=== PATIENT | male | born 1995 | race Asian ===

== ENCOUNTER 2020-11-17 10:45 | Outpatient (RCR) | payer MEDICAID, SELFPAY ==
[2020-11-03 13:09] VITALS: BP 103/69; PULSE 69; TEMP 37.1; BMI 16.2
--- NOTE | 2020-11-03 16:45 | PCM.WC.HP ---
(1) Pressure injury of sacral region, stage 4 Status: Acute Code(s): L89.154 - Pressure ulcer of sacral region, stage 4 (2) Pressure injury of left buttock, stage 4 Status: Acute Code(s): L89.324 - Pressure ulcer of left buttock, stage 4 (3) Malnutrition Status: Acute Code(s): E46 - Unspecified protein-calorie malnutrition (4) Muscular dystrophy Status: Acute Code(s): G71.00 - Muscular dystrophy, unspecified (5) Tracheostomy in place Status: Acute Code(s): Z93.0 - Tracheostomy status (6) Chronic respiratory failure Status: Chronic Code(s): J96.10 - Chronic respiratory failure, unspecified whether with hypoxia or hypercapnia (7) Colostomy in place Status: Acute Code(s): Z93.3 - Colostomy status History of Present Illness Date of Service: 11/03/20 Chief Complaint: stage four pressure injuries to sacrum and buttock History of Wound: This is a 25-year-old male who presents to the wound healing center today with stage IV pressure injuries to his sacrum and left buttock. He has with his father today. The patient is wheelchair-bound/bedbound and has a tracheostomy in place and has a history of severe muscular dystrophy, debility, and prior myocutaneous flap repair to sacral pressure ulcer. Patient is not verbal during today's office visit and from information gathered from the father the wounds have been present for greater than 6 months now. The patient underwent surgery in March 2020 to have his myocutaneous flap to close the sacral pressure ulcer. Afterwards per report of father he was hospitalized for pneumonia and developed another pressure injury to his left buttock. He was last seen by wound care in June 2020 and was placed on a wound VAC. The patient did not follow-up with wound care afterwards but did have home care nursing coming out 3 times a week. The father states that the wound VAC was discontinued a couple weeks ago. Since then they have been using an alginate dressing packed and changed daily. Denies any systemic or local signs of infection at this time. Denies any other acute concerns. Past medical, family, and social history reviewed and not pertinent to the current visit and all other systems reviewed and negative with exception of those listed above. Past Medical History Past Medical History: Chronic Problems Chronic respiratory failure (Chronic) Allergies/Adverse Reactions: Allergies No Known Allergies Allergy (Verified 11/03/20 13:34) Home Medications: Ambulatory Orders Medication Instructions Recorded Famotidine [Pepcid] 20 mg PO DAILY 11/03/20 Metoprolol Tartrate 25 mg PO 11/03/20 Metoprolol Tartrate [Lopressor] 25 mg PO 11/03/20 Smoking Status: Never smoker Review of Systems Constitutional: Denies: Chills, Fever, Weight Change Eyes: Denies: Pain, Vision Change HEENT: Denies: Difficulty Hearing, Difficulty Swallowing, Sinus Congestion Cardiovascular: Denies: Chest Pain, Palpitations Respiratory: Denies: Cough, Shortness of Breath Gastrointestinal: Denies: Diarrhea, Nausea, Vomiting Genitourinary: Denies: Dysuria, Hematuria Skin: Reports: Wounds - See HPI Endocrine: Denies: Heat/ Cold Intolerance, Polydipsia, Polyuria Hematologic/ Lymphatic: Denies: Easy Bruising, Easy Bleeding - Physical Exam Vital Signs Temp Pulse BP 98.7 F 69 103/69 11/03/20 13:09 11/03/20 13:09 11/03/20 13:09 General: Alert, - - Severely malnourished HEENT: Atraumatic Oral: Moist Mucosa Neck: - - Tracheostomy in place Lungs: Clear to auscultation Cardiovascular: Regular rate, Regular Rhythm Abdomen: Soft, Non Tender Extremities: - - Muscular atrophy all extremities Skin: Ulcer/ Wound - Stage IV pressure injuries to sacrum and left buttock with bone exposed, moderate amount of slough present, some circumferential undermining present to left buttock pressure injury, no signs of obvious infection at this time Wound Measurements and Assessment WC - Nurse 1 - General Ulcer Measurement Start: 11/03/20 13:00 Freq: Status: Active Protocol: Activity Type Activity Date Activity User E-Sign Co-Sign Detail Recorded Client Recorded Date Recorded By Document 11/03/20 13:09 DL [id number] 11/03/20 13:29 DL 11/03/20 13:09 Wound Center Nurse 1 [Ulcer Assessment] #2 L Buttocks -Current Size (cm) - Length 4 -Current Size (cm) - Width 2.4 -Current Size (cm) - Depth 1.4 -Total Square Cm 9.6 -Photo Taken Yes -Maximum Distance #2 (cm) 1.4 -Circular Undermining Yes -Classification - Thickness Full Thickness with Exposed Support Structure -Exudate Amt Small -Exudate Type Serosanguineous -Wound Margin Thickened -Granulation Amt Medium (34-66%) -Granulation Quality Red -Necrosis Amt Medium (34-66%) -Necrotic Tissue Type Adherent Slough -Structure Exposed Bone -Texture (Ana Lilia-wound Skin Appearance) Scarring -Moisture (Ana Lilia-wound Skin Appearance No Abnormality ) -Color (Ana Lilia-wound Skin Appearance) Hemosiderin Staining,Rubor -Temperature (Ana Lilia-wound Skin No Abnormality Appearance) (Pt Warm) -Tenderness on Palpation (Ana Lilia-wound No Skin Appearance) -Ulcer Cleansing Wound Cleanser -Foul Odor after Cleansing No -Anesthetic Used 4% Lidocaine Solution #1 sacral -Current Size (cm) - Length 4.9 -Current Size (cm) - Width 3.5 -Current Size (cm) - Depth 0.4 -Total Square Cm 17.15 -Photo Taken Yes -Classification - Thickness Full Thickness without Exposed Support Structure -Exudate Amt Small -Exudate Type Serosanguineous -Wound Margin Thickened & Rolled Under -Granulation Amt Large (67-100%) -Granulation Quality Red -Necrosis Amt Small (1-33%) -Necrotic Tissue Type Adherent Slough -Structure Exposed N/A -Texture (Ana Lilia-wound Skin Appearance) Scarring -Moisture (Ana Lilia-wound Skin Appearance No Abnormality ) -Color (Ana Lilia-wound Skin Appearance) Hemosiderin Staining,Rubor -Temperature (Ana Lilia-wound Skin No Abnormality Appearance) (Pt Warm) -Tenderness on Palpation (Ana Lilia-wound No Skin Appearance) -Ulcer Cleansing Wound Cleanser -Foul Odor after Cleansing No -Anesthetic Used 4% Lidocaine Solution WC - Nurse 2 - General Ulcer CM Notes Start: 11/03/20 13:00 Freq: Status: Active Protocol: Activity Type Activity Date Activity User E-Sign Co-Sign Detail Recorded Client Recorded Date Recorded By Document 11/03/20 13:48 MW [id number] 11/03/20 14:01 MW 11/03/20 13:48 Wound Center Nurse 2 [Procedure/Treatment] #2 L Buttocks -Time 13:49 -Correct Patient Yes -Correct Side, Site, Position Yes -Correct Procedure Yes -Procedure Performed Yes -Type of Procedure Debridement -Clinical Debridement Subcutaneous -Tissue Removed Subcutaneous -Post Debridement (cm) - Length 6.0 -Post Debridement (cm) - Width 4.5 -Post Debridement (cm) - Depth 2.3 -Total Square (Post) (cm) 27.00 -Area of Debridement (cm) - Length 6.0 -Area of Debridement (cm) - Width 4.5 -Total Square (Area) (cm) 27.00 -Tunneling No -Undermining/Tunneling No -Circular Undermining No -Wound/Ulcer Outcome Not Healed -Ulcer Cleansing Rinsed/ Irrigated with Saline -Foul Odor after Cleansing No -Bioengineered Tissue No -Bleeding Controlled with Pressure -Offloading No -Treatment Response Procedure Tolerated Well -Debridement - Subq, 1st 20sq cm Yes -Debridement, SubQ, ea addt'l 20sq cm 1 or part thereof #1 sacral -Time 13:50 -Correct Patient Yes -Correct Side, Site, Position Yes -Correct Procedure Yes -Procedure Performed Yes -Type of Procedure Debridement -Clinical Debridement Subcutaneous -Tissue Removed Subcutaneous -Post Debridement (cm) - Length 5.5 -Post Debridement (cm) - Width 4.0 -Post Debridement (cm) - Depth 1.0 -Total Square (Post) (cm) 22.00 -Area of Debridement (cm) - Length 5.5 -Area of Debridement (cm) - Width 4.0 -Total Square (Area) (cm) 22.00 -Tunneling No -Undermining/Tunneling No -Circular Undermining No -Wound/Ulcer Outcome Not Healed -Ulcer Cleansing Rinsed/ Irrigated with Saline -Foul Odor after Cleansing No -Bioengineered Tissue No -Bleeding Controlled with Pressure -Offloading No -Treatment Response Procedure Tolerated Well -Debridement - Subq, 1st 20sq cm No -Debridement, SubQ, ea addt'l 20sq cm 1 or part thereof [See Physician Procedure note for Specifics] Pain Scale: 0-10 Numeric [Pain] -Is Patient Pain Free? Yes WC - Nurse 3 - General Ulcer D/C NN Start: 11/03/20 13:00 Freq: Status: Active Protocol: Activity Type Activity Date Activity User E-Sign Co-Sign Detail Recorded Client Recorded Date Recorded By Document 11/03/20 14:07 RAJESH [id number] 11/03/20 14:15 RAJESH 11/03/20 14:07 Wound Care Nurse 3 [Wound Dressing] #2 L Buttocks -Ulcer Cleansing Rinsed/ Irrigated with Saline -Foul Odor after Cleansing No -Primary Dressing Applied Aquacel Extra -Primary Dressing Covered/Secured Secured with with Tape -Other Covering ABD -Aquacel Extra 1 Pain Scale: 0-10 Numeric [Pain] -Is Patient Pain Free? Yes WC - Visit Discharge [Visit Discharge Information] -Discharge Condition Stable -Ambulatory Status Stretcher -Transportation Ambulance -Accompanied by [facility] Musculoskeletal: Cachexia, Muscle Wasting Neurological: - - Patient is wheelchair bound, does not respond to verbal cues Psych/Mental Status: - - Unable to assess Comment: Catheter, colostomy, tracheostomy, PEG tube in place Debridement Note Post-Debridement Measurements/Treatment WC - Nurse 2 - General Ulcer CM Notes Start: 11/03/20 13:00 Freq: Status: Active Protocol: Activity Type Activity Date Activity User E-Sign Co-Sign Detail Recorded Client Recorded Date Recorded By Document 11/03/20 13:48 MW [id number] 11/03/20 14:01 MW 11/03/20 13:48 Wound Center Nurse 2 #2 L Buttocks -Time 13:49 -Correct Patient Yes -Correct Side, Site, Position Yes -Correct Procedure Yes -Procedure Performed Yes -Type of Procedure Debridement -Clinical Debridement Subcutaneous -Tissue Removed Subcutaneous -Post Debridement (cm) - Length 6.0 -Post Debridement (cm) - Width 4.5 -Post Debridement (cm) - Depth 2.3 -Total Square (Post) (cm) 27.00 -Area of Debridement (cm) - Length 6.0 -Area of Debridement (cm) - Width 4.5 -Total Square (Area) (cm) 27.00 -Tunneling No -Undermining/Tunneling No -Circular Undermining No -Wound/Ulcer Outcome Not Healed -Ulcer Cleansing Rinsed/ Irrigated with Saline -Foul Odor after Cleansing No -Bioengineered Tissue No -Bleeding Controlled with Pressure -Offloading No -Treatment Response Procedure Tolerated Well -Debridement - Subq, 1st 20sq cm Yes -Debridement, SubQ, ea addt'l 20sq cm 1 or part thereof #1 sacral -Time 13:50 -Correct Patient Yes -Correct Side, Site, Position Yes -Correct Procedure Yes -Procedure Performed Yes -Type of Procedure Debridement -Clinical Debridement Subcutaneous -Tissue Removed Subcutaneous -Post Debridement (cm) - Length 5.5 -Post Debridement (cm) - Width 4.0 -Post Debridement (cm) - Depth 1.0 -Total Square (Post) (cm) 22.00 -Area of Debridement (cm) - Length 5.5 -Area of Debridement (cm) - Width 4.0 -Total Square (Area) (cm) 22.00 -Tunneling No -Undermining/Tunneling No -Circular Undermining No -Wound/Ulcer Outcome Not Healed -Ulcer Cleansing Rinsed/ Irrigated with Saline -Foul Odor after Cleansing No -Bioengineered Tissue No -Bleeding Controlled with Pressure -Offloading No -Treatment Response Procedure Tolerated Well -Debridement - Subq, 1st 20sq cm No -Debridement, SubQ, ea addt'l 20sq cm 1 or part thereof Pain Scale: 0-10 Numeric Is Patient Pain Free? Yes - Nurse 3 - General Ulcer D/C NN Start: 11/03/20 13:00 Freq: Status: Active Protocol: Activity Type Activity Date Activity User E-Sign Co-Sign Detail Recorded Client Recorded Date Recorded By Document 11/03/20 14:07 RAJESH [id number] 11/03/20 14:15 RAJESH 11/03/20 14:07 Wound Care Nurse 3 #2 L Buttocks -Ulcer Cleansing Rinsed/ Irrigated with Saline -Foul Odor after Cleansing No -Primary Dressing Applied Aquacel Extra -Primary Dressing Covered/Secured with Secured with Tape -Other Covering ABD -Aquacel Extra 1 Pain Scale: 0-10 Numeric Is Patient Pain Free? Yes - Visit Discharge Discharge Condition Stable Ambulatory Status Stretcher Transportation Ambulance Accompanied by [facility] Wound debrided: Stage 4 pressure injury to left buttock and sacrum Type of Debridement: Excisional debridement Anesthesia Used: 5% Lidocaine Gel Depth: in the subcutaneous layer, to muscle, to bone Percentage of wound debrided: 100 Instrument Used: 7mm curette Tissue Removed: Slough and devitalized tissue Severity: Necrosis of Muscle Amount of bleeding with debridement: Mild Bleeding Controlled with: Pressure Patient tolerated procedure well Assessment/Plan Active Problems Pressure injury of sacral region, stage 4 (Acute) Pressure injury of left buttock, stage 4 (Acute) Malnutrition (Acute) Muscular dystrophy (Acute) Tracheostomy in place (Acute) Chronic respiratory failure (Chronic) Colostomy in place (Acute) Assessment: See above diagnoses Plan: The patient was seen and examined at the wound center today and was updated on the plan of care. A subcutaneous/muscular debridement was performed today. The patient tolerated the procedure well. The patients wound care will consist of: Restarting wound VAC with black foam at 125 mmHg change 3 times a week. Wound cultures were collected. Baseline bloodwork ordered. Patient father educated on the importance of diet on wound healing and instructed to increase protein and vitamin C intake. Per the father's report the patient does have a pressure relieving air mattress at home which he spends the majority of his time. Also advised to change positions at minimum every 2 hours. Patient father verbalized understanding. Patient will follow up at wound healing center in two week or sooner if needed. He will need a consultation with his original surgeon and/or plastic surgery to consider another myocutaneous flap. The patient does have multiple comorbidities that complicates his care. Will likely be transferred to a palliative wound care approach in the near future. This note was generated with [employer] dictation software. It may contain incorrect words, spelling, and punctuation that were not noted in checking the note before signing. Office Visits / Consults: [id number] OV L4 New [id number]: [id number] Katian musc/fascia 20 sq cm/<
[2020-11-17 11:02] VITALS: BP 113/76; PULSE 114; RESP 16; TEMP 37.7; BMI 16.2
--- NOTE | 2020-11-17 12:22 | PN.PCM_ITS ---
(1) Pressure injury of left buttock, stage 4 Status: Acute Code(s): L89.324 - Pressure ulcer of left buttock, stage 4 (2) Pressure injury of sacral region, stage 4 Status: Acute Code(s): L89.154 - Pressure ulcer of sacral region, stage 4 (3) Colostomy in place Status: Acute Code(s): Z93.3 - Colostomy status (4) Malnutrition Status: Acute Code(s): E46 - Unspecified protein-calorie malnutrition (5) Muscular dystrophy Status: Acute Code(s): G71.00 - Muscular dystrophy, unspecified (6) Tracheostomy in place Status: Acute Code(s): Z93.0 - Tracheostomy status (7) Chronic respiratory failure Status: Chronic Code(s): J96.10 - Chronic respiratory failure, unspecified whether with hypoxia or hypercapnia Type of Wound Date of Service: 11/17/20 Chief Complaint: stage four pressure injuries to sacrum and buttock History of Wound: This is a 25-year-old male who presents to the wound healing center today with stage IV pressure injuries to his sacrum and left buttock. He has with his father today. The patient is wheelchair-bound/bedbound and has a tracheostomy in place and has a history of severe muscular dystrophy, debility, and prior myocutaneous flap repair to sacral pressure ulcer. Patient is not verbal during today's office visit and from information gathered from the father the wounds have been present for greater than 6 months now. The patient underwent surgery in March 2020 to have his myocutaneous flap to close the sacral pressure ulcer. Afterwards per report of father he was hospitalized for pneumonia and developed another pressure injury to his left buttock. He was last seen by wound care in June 2020 and was placed on a wound VAC. The patient did not follow-up with wound care afterwards but did have home care nursing coming out 3 times a week. The father states that the wound VAC was discontinued a couple weeks ago. Since then they have been using an alginate dressing packed and changed daily. Denies any systemic or local signs of infection at this time. Denies any other acute concerns. Past medical, family, and social history reviewed and not pertinent to the current visit and all other systems reviewed and negative with exception of those listed above. Progress of Wound: Courtesy Visit for Ronnie Griffith,[employer]. No new concerns. Tolerating wound Vac and doxycycline well. - Physical Exam Vital Signs Temp Pulse Resp BP 99.8 F H 114 H 16 113/76 11/17/20 11:02 11/17/20 11:02 11/17/20 11:02 11/17/20 11:02 General: Cooperative, No apparent distress HEENT: Atraumatic, Normocephalic Oral: Moist Mucosa Neck: Supple Extremities: No cyanosis, No edema Wound Measurements and Assessment WC - Nurse 1 - General Ulcer Measurement Start: 11/03/20 13:00 Freq: Status: Active Protocol: Activity Type Activity Date Activity User E-Sign Co-Sign Detail Recorded Client Recorded Date Recorded By Document 11/17/20 11:02 DL [id number] 11/17/20 11:13 DL 11/17/20 11:02 Wound Center Nurse 1 [Ulcer Assessment] #2 L Buttocks -Current Size (cm) - Length 4 -Current Size (cm) - Width 3.2 -Current Size (cm) - Depth 1.7 -Total Square Cm 12.8 -Photo Taken No -Exudate Amt Medium -Exudate Type Serosanguineous -Wound Margin Distinct, Outline Attached -Granulation Amt Medium (34-66%) -Granulation Quality Red -Necrosis Amt Medium (34-66%) -Necrotic Tissue Type Adherent Slough -Structure Exposed N/A -Texture (Ana Lilia-wound Skin Appearance) Scarring -Moisture (Ana Lilia-wound Skin Appearance No Abnormality ) -Color (Ana Lilia-wound Skin Appearance) Rubor -Temperature (Ana Lilia-wound Skin No Abnormality Appearance) (Pt Warm) -Tenderness on Palpation (Ana Lilia-wound No Skin Appearance) -Ulcer Cleansing Wound Cleanser -Foul Odor after Cleansing No -Anesthetic Used 4% Lidocaine Solution #1 sacral -Current Size (cm) - Length 5.6 -Current Size (cm) - Width 3.5 -Current Size (cm) - Depth 1.2 -Total Square Cm 19.60 -Photo Taken No -Undermining/Tunneling Starts (O' 1 clock) -Undermining/Tunneling Ends (O'clock) 2 -Maximum Distance (cm) 1.1 -Circular Undermining No -Exudate Amt Medium -Exudate Type Serosanguineous -Wound Margin Distinct, Outline Attached -Granulation Amt Medium (34-66%) -Granulation Quality Red -Necrosis Amt Medium (34-66%) -Necrotic Tissue Type Adherent Slough -Structure Exposed Bone -Texture (Ana Lilia-wound Skin Appearance) Scarring -Moisture (Ana Lilia-wound Skin Appearance No Abnormality ) -Color (Ana Lilia-wound Skin Appearance) Rubor -Temperature (Ana Lilia-wound Skin No Abnormality Appearance) (Pt Warm) -Ulcer Cleansing Wound Cleanser -Foul Odor after Cleansing No -Anesthetic Used 4% Lidocaine Solution WC - Nurse 2 - General Ulcer CM Notes Start: 11/03/20 13:00 Freq: Status: Active Protocol: Activity Type Activity Date Activity User E-Sign Co-Sign Detail Recorded Client Recorded Date Recorded By Document 11/17/20 11:29 MW [id number] 11/17/20 11:38 MW 11/17/20 11:29 Wound Center Nurse 2 [Procedure/Treatment] #2 L Buttocks -Time 11:30 -Correct Patient Yes -Correct Side, Site, Position Yes -Correct Procedure Yes -Procedure Performed Yes -Type of Procedure Debridement -Clinical Debridement Subcutaneous -Tissue Removed Subcutaneous -Post Debridement (cm) - Length 4.0 -Post Debridement (cm) - Width 3.0 -Post Debridement (cm) - Depth 1.9 -Total Square (Post) (cm) 12.00 -Area of Debridement (cm) - Length 4.0 -Area of Debridement (cm) - Width 3.0 -Total Square (Area) (cm) 12.00 -Tunneling No -Undermining/Tunneling No -Circular Undermining No -Wound/Ulcer Outcome Not Healed -Ulcer Cleansing Rinsed/ Irrigated with Saline -Foul Odor after Cleansing No -Bioengineered Tissue No -Bleeding Controlled with Pressure -Offloading No -Treatment Response Procedure Tolerated Well -Debridement - Subq, 1st 20sq cm Yes -Debridement, SubQ, ea addt'l 20sq cm 1 or part thereof #1 sacral -Time 11:30 -Correct Patient Yes -Correct Side, Site, Position Yes -Correct Procedure Yes -Procedure Performed Yes -Type of Procedure Debridement -Clinical Debridement Subcutaneous -Tissue Removed Subcutaneous -Post Debridement (cm) - Length 6.0 -Post Debridement (cm) - Width 4.4 -Post Debridement (cm) - Depth 1.3 -Total Square (Post) (cm) 26.40 -Area of Debridement (cm) - Length 6.0 -Area of Debridement (cm) - Width 4.4 -Total Square (Area) (cm) 26.40 -Tunneling No -Undermining/Tunneling No -Circular Undermining No -Wound/Ulcer Outcome Not Healed -Ulcer Cleansing Rinsed/ Irrigated with Saline -Foul Odor after Cleansing No -Bioengineered Tissue No -Bleeding Controlled with Pressure -Offloading No -Debridement - Subq, 1st 20sq cm No [See Physician Procedure note for Specifics] Pain Scale: 0-10 Numeric [Pain] -Is Patient Pain Free? Yes - Nurse 3 - General Ulcer D/C NN Start: 11/03/20 13:00 Freq: Status: Active Protocol: Activity Type Activity Date Activity User E-Sign Co-Sign Detail Recorded Client Recorded Date Recorded By Document 11/17/20 11:45 DL [id number] 11/17/20 11:46 DL 11/17/20 11:45 Wound Care Nurse 3 [Wound Dressing] #2 L Buttocks -Ulcer Cleansing Wound Cleanser -Foul Odor after Cleansing No -Negative Pressure Wound Therapy Continue -Setting (mmHg) 125 -Negative Pressure is Continuous -NPWT Application Charge ($) NPWT > 50 sq cm #1 sacral -Ulcer Cleansing Wound Cleanser -Foul Odor after Cleansing No -Negative Pressure Wound Therapy Continue -Setting (mmHg) 125 -Negative Pressure is Continuous -NPWT Application Charge ($) NPWT > 50 sq cm [Post Procedure Tolerated] -Treatment Response Procedure Tolerated Well Pain Scale: 0-10 Numeric [Pain] -Is Patient Pain Free? Yes - Visit Discharge [Visit Discharge Information] -Discharge Condition Stable -Ambulatory Status Stretcher -Transportation Ambulance -Accompanied by parent [Facility Notification] -Facility Type Home Health -Orders Sent Yes Musculoskeletal: Muscle Wasting Debridement Note Post-Debridement Measurements/Treatment - Nurse 2 - General Ulcer CM Notes Start: 11/03/20 13:00 Freq: Status: Active Protocol: Activity Type Activity Date Activity User E-Sign Co-Sign Detail Recorded Client Recorded Date Recorded By Document 11/03/20 13:48 MW [id number] 11/03/20 14:01 MW Document 11/17/20 11:29 MW [id number] 11/17/20 11:38 MW 11/03/20 11/17/20 13:48 11:29 Wound Center Nurse 2 #2 L Buttocks -Time 13:49 11:30 -Correct Patient Yes Yes -Correct Side, Site, Position Yes Yes -Correct Procedure Yes Yes -Procedure Performed Yes Yes -Type of Procedure Debridement Debridement -Clinical Debridement Muscle / Fascia Subcutaneous -Tissue Removed Subcutaneous, Subcutaneous Fascia -Post Debridement (cm) - Length 6.0 4.0 -Post Debridement (cm) - Width 4.5 3.0 -Post Debridement (cm) - Depth 2.3 1.9 -Total Square (Post) (cm) 27.00 12.00 -Area of Debridement (cm) - Length 6.0 4.0 -Area of Debridement (cm) - Width 4.5 3.0 -Total Square (Area) (cm) 27.00 12.00 -Tunneling No No -Undermining/Tunneling No No -Circular Undermining No No -Wound/Ulcer Outcome Not Healed Not Healed -Ulcer Cleansing Rinsed/ Rinsed/ Irrigated with Irrigated with Saline Saline -Foul Odor after Cleansing No No -Bioengineered Tissue No No -Bleeding Controlled with Pressure Pressure -Offloading No No -Treatment Response Procedure Procedure Tolerated Well Tolerated Well -Debridement - Subq, 1st 20sq cm Yes -Debridement, SubQ, ea addt'l 20sq cm 1 or part thereof -Debridement - Muscle / Fascia, 1st Yes 20sq cm -Debridement, Muscle/Fascia, ea addt'l 2 20sq cm or part thereof #1 sacral -Time 13:50 11:30 -Correct Patient Yes Yes -Correct Side, Site, Position Yes Yes -Correct Procedure Yes Yes -Procedure Performed Yes Yes -Type of Procedure Debridement Debridement -Clinical Debridement Subcutaneous Subcutaneous -Tissue Removed Subcutaneous Subcutaneous -Post Debridement (cm) - Length 5.5 6.0 -Post Debridement (cm) - Width 4.0 4.4 -Post Debridement (cm) - Depth 1.0 1.3 -Total Square (Post) (cm) 22.00 26.40 -Area of Debridement (cm) - Length 5.5 6.0 -Area of Debridement (cm) - Width 4.0 4.4 -Total Square (Area) (cm) 22.00 26.40 -Tunneling No No -Undermining/Tunneling No No -Circular Undermining No No -Wound/Ulcer Outcome Not Healed Not Healed -Ulcer Cleansing Rinsed/ Rinsed/ Irrigated with Irrigated with Saline Saline -Foul Odor after Cleansing No No -Bioengineered Tissue No No -Bleeding Controlled with Pressure Pressure -Offloading No No -Treatment Response Procedure Tolerated Well -Debridement - Subq, 1st 20sq cm No No Pain Scale: 0-10 Numeric Is Patient Pain Free? Yes Yes - Nurse 3 - General Ulcer D/C NN Start: 11/03/20 13:00 Freq: Status: Active Protocol: Activity Type Activity Date Activity User E-Sign Co-Sign Detail Recorded Client Recorded Date Recorded By Document 11/03/20 14:07 KR [id number] 11/03/20 14:15 KR Document 11/17/20 11:45 DL [id number] 11/17/20 11:46 DL 11/03/20 11/17/20 14:07 11:45 Wound Care Nurse 3 #2 L Buttocks -Ulcer Cleansing Rinsed/ Wound Cleanser Irrigated with Saline -Foul Odor after Cleansing No No -Negative Pressure Wound Therapy Continue -Setting (mmHg) 125 -Negative Pressure is Continuous -Primary Dressing Applied Aquacel Extra -Primary Dressing Covered/Secured with Secured with Tape -Other Covering ABD -NPWT Application Charge ($) NPWT > 50 sq cm -Aquacel Extra 1 #1 sacral -Ulcer Cleansing Wound Cleanser -Foul Odor after Cleansing No -Negative Pressure Wound Therapy Continue -Setting (mmHg) 125 -Negative Pressure is Continuous -NPWT Application Charge ($) NPWT > 50 sq cm Treatment Response Procedure Tolerated Well Pain Scale: 0-10 Numeric Is Patient Pain Free? Yes Yes - Visit Discharge Discharge Condition Stable Stable Ambulatory Status Stretcher Stretcher Transportation Ambulance Ambulance Accompanied by Divine parent Facility Type Home Health Orders Sent Yes Wound debrided: Sacral ulcer Wound Grade/Stage: Stage IV Type of Debridement: Excisional debridement Anesthesia Used: 4% Lidocaine Solution Depth: Down to and including healthy tissue, in the subcutaneous layer Percentage of wound debrided: 100 Instrument Used: 5mm curette Tissue Removed: Slough and devitalized tissue Severity: Fat Layer Exposed Amount of bleeding with debridement: Mild Bleeding Controlled with: Pressure Patient tolerated procedure well - Additional Wound Wound debrided: Left Buttock Wound Grade/Stage: Stage IV Type of Debridement: Excisional debridement Anesthesia Used: 4% Lidocaine Solution Depth: Down to and including healthy tissue, in the subcutaneous layer Percentage of wound debrided: 100 Instrument Used: 5mm curette Tissue Removed: Slough and devitalized tissue Severity: Fat Layer Exposed Amount of bleeding with debridement: Mild Bleeding Controlled with: Pressure Patient tolerated procedure: Patient tolerated procedure well Assessment/Plan Active Problems Pressure injury of sacral region, stage 4 (Acute) Pressure injury of left buttock, stage 4 (Acute) Malnutrition (Acute) Muscular dystrophy (Acute) Tracheostomy in place (Acute) Chronic respiratory failure (Chronic) Colostomy in place (Acute) Assessment: See above diagnoses Plan: Debridement done as documented above, procedure was well- tolerated.Continue wound VAC at 125 mmHg. Change every other day. Continue offloading, increase protein intake. Their questions were answered and they were advised to call with any further questions or concerns. Follow-up in a week with Ronnie Griffith NP. This note was generated with [employer] software. It may contain incorrect words, spelling, and punctuation that were not noted in checking the note before signing. [id number]: [id number] Katina subq tissue 20 sq cm/<
--- NOTE | 2020-11-24 17:06 | WC ---
Lab results received from [facility] that were ordered per Ronnie Griffith NP. Ronnie reviewed results. Notified patient caregiver/father Yrnmathieu Perez. Instructed to f/u with PCP for any abnormal results. Results faxed to PCP Dr. Jason Perez in [place].
== END 2020-11-17 23:59 ==
LOC: WC 10:45
PROVIDERS: Visit Provider Nurse Practitioner Family
DX: L89.154 Pressure ulcer of sacral region, stage 4 (principal); G71.00 Muscular dystrophy, unspecified; L89.324 Pressure ulcer of left buttock, stage 4; Z93.0 Tracheostomy status; J96.10 Chronic respiratory failure, unspecified whether with hypoxia or hypercapnia; Z93.3 Colostomy status; Z74.01 Bed confinement status; Z79.899 Other long term (current) drug therapy; E43 Unspecified severe protein-calorie malnutrition; Z68.1 Body mass index [BMI] 19.9 or less, adult
CPT/HCPCS: 11042; 11043; 11045; 11046; 87070; 87075; 87077; 87186; 87205; 97606; 99203; G0463

== ENCOUNTER 2020-12-01 13:00 | Outpatient (RCR) | payer MEDICAID, SELFPAY ==
[2020-11-18 00:38] VITALS: BP 113/76; PULSE 114; RESP 16; TEMP 37.7
[2020-12-01 13:16] VITALS: BP 148/92; PULSE 124; RESP 18; TEMP 36.6; BMI 16.2
--- NOTE | 2020-12-01 13:38 | PCM.WC.PN ---
(1) Pressure injury of sacral region, stage 4 Status: Acute Code(s): L89.154 - Pressure ulcer of sacral region, stage 4 (2) Pressure injury of left buttock, stage 4 Status: Acute Code(s): L89.324 - Pressure ulcer of left buttock, stage 4 (3) Malnutrition Status: Acute Code(s): E46 - Unspecified protein-calorie malnutrition (4) Muscular dystrophy Status: Acute Code(s): G71.00 - Muscular dystrophy, unspecified (5) Tracheostomy in place Status: Acute Code(s): Z93.0 - Tracheostomy status (6) Chronic respiratory failure Status: Chronic Code(s): J96.10 - Chronic respiratory failure, unspecified whether with hypoxia or hypercapnia (7) Colostomy in place Status: Acute Code(s): Z93.3 - Colostomy status Type of Wound Date of Service: 12/01/20 Chief Complaint: stage four pressure injuries to sacrum and buttock History of Wound: This is a 25-year-old male who presents to the wound healing center today with stage IV pressure injuries to his sacrum and left buttock. He has with his father today. The patient is wheelchair-bound/bedbound and has a tracheostomy in place and has a history of severe muscular dystrophy, debility, and prior myocutaneous flap repair to sacral pressure ulcer. Patient is not verbal during today's office visit and from information gathered from the father the wounds have been present for greater than 6 months now. The patient underwent surgery in March 2020 to have his myocutaneous flap to close the sacral pressure ulcer. Afterwards per report of father he was hospitalized for pneumonia and developed another pressure injury to his left buttock. He was last seen by wound care in June 2020 and was placed on a wound VAC. The patient did not follow-up with wound care afterwards but did have home care nursing coming out 3 times a week. The father states that the wound VAC was discontinued a couple weeks ago. Since then they have been using an alginate dressing packed and changed daily. Denies any systemic or local signs of infection at this time. Denies any other acute concerns. Past medical, family, and social history reviewed and not pertinent to the current visit and all other systems reviewed and negative with exception of those listed above. Progress of Wound: No new concerns. Tolerating wound Vac and completed doxycycline. Doing well with home health 3 times a week as well. Pending surgical consult next week on 12/05/2020. - Physical Exam Vital Signs Temp Pulse Resp BP 97.9 F 124 H 18 148/92 H 12/01/20 13:16 12/01/20 13:16 12/01/20 13:16 12/01/20 13:16 General: Alert, No apparent distress HEENT: Atraumatic Oral: Moist Mucosa Lungs: Diminished Cardiovascular: Regular rate Abdomen: - - Colostomy and PEG tube in place Skin: Ulcer/ Wound - See nursing documentation, stage IV pressure injury to sacrum and left buttock with adherent slough, prior areas of bone exposures are now covered with very thin layer of tissue which appears granular, undermining is less this week as well, no foul odor or any other obvious signs of gross infection Wound Measurements and Assessment WC - Nurse 1 - General Ulcer Measurement Start: 12/01/20 13:10 Freq: Status: Active Protocol: Activity Type Activity Date Activity User E-Sign Co-Sign Detail Recorded Client Recorded Date Recorded By Document 12/01/20 13:16 DL [id number] 12/01/20 13:18 DL 12/01/20 13:16 Wound Center Nurse 1 [Ulcer Assessment] #2 L Buttocks -Current Size (cm) - Length 3.4 -Current Size (cm) - Width 2.3 -Current Size (cm) - Depth 1.5 -Total Square Cm 7.82 -Photo Taken No -Exudate Amt Small -Exudate Type Serosanguineous -Wound Margin Distinct, Outline Attached -Granulation Amt Medium (34-66%) -Granulation Quality Red -Necrosis Amt Medium (34-66%) -Necrotic Tissue Type Adherent Slough -Structure Exposed N/A -Texture (Ana Lilia-wound Skin Appearance) Scarring -Moisture (Ana Lilia-wound Skin Appearance No Abnormality ) -Color (Ana Lilia-wound Skin Appearance) No Abnormality -Temperature (Ana Lilia-wound Skin No Abnormality Appearance) (Pt Warm) -Ulcer Cleansing Wound Cleanser -Foul Odor after Cleansing No -Anesthetic Used 4% Lidocaine Solution #1 sacral -Current Size (cm) - Length 6 -Current Size (cm) - Width 3.5 -Current Size (cm) - Depth 1 -Total Square Cm 21.0 -Photo Taken No -Exudate Amt Small -Exudate Type Serosanguineous -Wound Margin Distinct, Outline Attached -Granulation Amt Medium (34-66%) -Granulation Quality Red -Necrosis Amt Medium (34-66%) -Necrotic Tissue Type Adherent Slough -Structure Exposed N/A -Texture (Ana Lilia-wound Skin Appearance) Scarring -Moisture (Ana Lilia-wound Skin Appearance No Abnormality ) -Color (Ana Lilia-wound Skin Appearance) No Abnormality -Tenderness on Palpation (Ana Lilia-wound No Skin Appearance) -Ulcer Cleansing Wound Cleanser -Foul Odor after Cleansing No -Anesthetic Used 4% Lidocaine Solution WC - Nurse 2 - General Ulcer CM Notes Start: 12/01/20 13:10 Freq: Status: Active Protocol: Activity Type Activity Date Activity User E-Sign Co-Sign Detail Recorded Client Recorded Date Recorded By Document 12/01/20 13:29 MW [id number] 12/01/20 13:31 MW 12/01/20 13:29 Wound Center Nurse 2 [Procedure/Treatment] #2 L Buttocks -Time 13:29 -Correct Patient Yes -Correct Side, Site, Position Yes -Correct Procedure Yes -Procedure Performed Yes -Type of Procedure Debridement -Clinical Debridement Muscle / Fascia -Tissue Removed Muscle,Fascia -Post Debridement (cm) - Length 3.8 -Post Debridement (cm) - Width 3.0 -Post Debridement (cm) - Depth 1.5 -Total Square (Post) (cm) 11.40 -Area of Debridement (cm) - Length 3.8 -Area of Debridement (cm) - Width 3.0 -Total Square (Area) (cm) 11.40 -Tunneling No -Undermining/Tunneling No -Circular Undermining No -Wound/Ulcer Outcome Not Healed -Ulcer Cleansing Rinsed/ Irrigated with Saline -Foul Odor after Cleansing No -Bioengineered Tissue No -Bleeding Controlled with Pressure -Offloading No -Treatment Response Procedure Tolerated Well -Debridement - Muscle / Fascia, 1st Yes 20sq cm #1 sacral -Time 13:29 -Correct Patient Yes -Correct Side, Site, Position Yes -Correct Procedure Yes -Procedure Performed Yes -Type of Procedure Debridement -Clinical Debridement Muscle / Fascia -Tissue Removed Muscle,Fascia -Post Debridement (cm) - Length 6.0 -Post Debridement (cm) - Width 4.0 -Post Debridement (cm) - Depth 1.6 -Total Square (Post) (cm) 24.00 -Area of Debridement (cm) - Length 6.0 -Area of Debridement (cm) - Width 4.0 -Total Square (Area) (cm) 24.00 -Tunneling No -Undermining/Tunneling No -Circular Undermining No -Wound/Ulcer Outcome Not Healed -Ulcer Cleansing Rinsed/ Irrigated with Saline -Foul Odor after Cleansing No -Bioengineered Tissue No -Bleeding Controlled with Pressure -Offloading No -Treatment Response Procedure Tolerated Well -Debridement - Muscle / Fascia, 1st No 20sq cm [See Physician Procedure note for Specifics] Pain Scale: 0-10 Numeric [Pain] -Is Patient Pain Free? Yes Neurological: - - Neurologically impaired chronically Psych/Mental Status: Normal Affect Debridement Note Post-Debridement Measurements/Treatment WC - Nurse 2 - General Ulcer CM Notes Start: 12/01/20 13:10 Freq: Status: Active Protocol: Activity Type Activity Date Activity User E-Sign Co-Sign Detail Recorded Client Recorded Date Recorded By Document 12/01/20 13:29 MW [id number] 12/01/20 13:31 MW 12/01/20 13:29 Wound Center Nurse 2 #2 L Buttocks -Time 13:29 -Correct Patient Yes -Correct Side, Site, Position Yes -Correct Procedure Yes -Procedure Performed Yes -Type of Procedure Debridement -Clinical Debridement Muscle / Fascia -Tissue Removed Muscle,Fascia -Post Debridement (cm) - Length 3.8 -Post Debridement (cm) - Width 3.0 -Post Debridement (cm) - Depth 1.5 -Total Square (Post) (cm) 11.40 -Area of Debridement (cm) - Length 3.8 -Area of Debridement (cm) - Width 3.0 -Total Square (Area) (cm) 11.40 -Tunneling No -Undermining/Tunneling No -Circular Undermining No -Wound/Ulcer Outcome Not Healed -Ulcer Cleansing Rinsed/ Irrigated with Saline -Foul Odor after Cleansing No -Bioengineered Tissue No -Bleeding Controlled with Pressure -Offloading No -Treatment Response Procedure Tolerated Well -Debridement - Muscle / Fascia, 1st Yes 20sq cm #1 sacral -Time 13:29 -Correct Patient Yes -Correct Side, Site, Position Yes -Correct Procedure Yes -Procedure Performed Yes -Type of Procedure Debridement -Clinical Debridement Muscle / Fascia -Tissue Removed Muscle,Fascia -Post Debridement (cm) - Length 6.0 -Post Debridement (cm) - Width 4.0 -Post Debridement (cm) - Depth 1.6 -Total Square (Post) (cm) 24.00 -Area of Debridement (cm) - Length 6.0 -Area of Debridement (cm) - Width 4.0 -Total Square (Area) (cm) 24.00 -Tunneling No -Undermining/Tunneling No -Circular Undermining No -Wound/Ulcer Outcome Not Healed -Ulcer Cleansing Rinsed/ Irrigated with Saline -Foul Odor after Cleansing No -Bioengineered Tissue No -Bleeding Controlled with Pressure -Offloading No -Treatment Response Procedure Tolerated Well -Debridement - Muscle / Fascia, 1st No 20sq cm Pain Scale: 0-10 Numeric Is Patient Pain Free? Yes Wound debrided: Stage IV pressure injury to sacrum and left buttock Type of Debridement: Excisional debridement Anesthesia Used: 5% Lidocaine Gel Depth: in the subcutaneous layer, to muscle Percentage of wound debrided: 100 Instrument Used: 7mm curette Tissue Removed: Slough and devitalized tissue Severity: Necrosis of Muscle Amount of bleeding with debridement: Mild Bleeding Controlled with: Pressure Patient tolerated procedure well Assessment/Plan Assessment: See above diagnoses Plan: Debridement done as documented above, procedure was well-tolerated.Continue wound VAC at 125 mmHg. Change every 3 times a week and rinse with Dakin solution. Continue offloading, increase protein intake. Blood work was reviewed and showed inflammatory markers were elevated and also prealbumin was low indicating malnutrition. Educated again the importance of protein supplementation. Patient will follow up with his PCP concerning the chronic abnormalities including chronic anemia on his blood work. Their questions were answered and they were advised to call with any further questions or concerns. Follow-up in a week with surgical consult and 3 weeks with myself. Patient will be transferred to a palliative wound plan. This note was generated with [employer] software. It may contain incorrect words, spelling, and punctuation that were not noted in checking the note before signing. [id number]: [id number] Katina musc/fascia 20 sq cm/<
== END 2020-12-18 23:59 ==
LOC: WC 13:00
PROVIDERS: Visit Provider Nurse Practitioner Family
DX: L89.154 Pressure ulcer of sacral region, stage 4 (principal); L89.324 Pressure ulcer of left buttock, stage 4; G71.00 Muscular dystrophy, unspecified; Z93.0 Tracheostomy status; J96.10 Chronic respiratory failure, unspecified whether with hypoxia or hypercapnia; Z93.3 Colostomy status; Z74.01 Bed confinement status; E46 Unspecified protein-calorie malnutrition
CPT/HCPCS: 11043; 11046; 97605

== ENCOUNTER 2021-01-19 13:15 | Outpatient (RCR) | payer MEDICAID, SELFPAY ==
[2020-12-19 00:33] VITALS: BP 148/92; PULSE 124; RESP 18; TEMP 36.6
[2021-01-19 13:15] VITALS: BP 118/93; PULSE 121; RESP 20; TEMP 36.6; BMI 16.2
--- NOTE | 2021-01-20 11:29 | PN.PCM_ITS ---
(1) Pressure injury of sacral region, stage 4 Status: Acute Code(s): L89.154 - Pressure ulcer of sacral region, stage 4 (2) Pressure injury of left buttock, stage 4 Status: Acute Code(s): L89.324 - Pressure ulcer of left buttock, stage 4 (3) Colostomy in place Status: Acute Code(s): Z93.3 - Colostomy status (4) Malnutrition Status: Acute Code(s): E46 - Unspecified protein-calorie malnutrition (5) Muscular dystrophy Status: Acute Code(s): G71.00 - Muscular dystrophy, unspecified (6) Tracheostomy in place Status: Acute Code(s): Z93.0 - Tracheostomy status (7) Chronic respiratory failure Status: Chronic Code(s): J96.10 - Chronic respiratory failure, unspecified whether with hypoxia or hypercapnia Type of Wound Date of Service: 01/19/21 Chief Complaint: stage four pressure injuries to sacrum and buttock History of Wound: This is a 25-year-old male who presents to the wound healing center today with stage IV pressure injuries to his sacrum and left buttock. He has with his father today. The patient is wheelchair-bound/bedbound and has a tracheostomy in place and has a history of severe muscular dystrophy, debility, and prior myocutaneous flap repair to sacral pressure ulcer. Patient is not verbal during today's office visit and from information gathered from the father the wounds have been present for greater than 6 months now. The patient underwent surgery in March 2020 to have his myocutaneous flap to close the sacral pressure ulcer. Afterwards per report of father he was hospitalized for pneumonia and developed another pressure injury to his left buttock. He was last seen by wound care in June 2020 and was placed on a wound VAC. The patient did not follow-up with wound care afterwards but did have home care nursing coming out 3 times a week. The father states that the wound VAC was discontinued a couple weeks ago. Since then they have been using an alginate dressing packed and changed daily. Denies any systemic or local signs of infection at this time. Denies any other acute concerns. Past medical, family, and social history reviewed and not pertinent to the current visit and all other systems reviewed and negative with exception of those listed above. Progress of Wound: No new concerns. Tolerating wound Vac and completed doxycycline. Doing well with home health 3 times a week as well. Patient's father wishes to hold off on surgical consult at this time as wounds are improving. Currently no bone is exposed in the wounds at this time. Will increase the wound VAC to 150 mmHg.Patient's father wishes to remain on a palliative plan and be seen only once every 4 weeks due to difficulty with transportation. - Physical Exam Vital Signs Temp Pulse Resp BP 98 F 121 H 20 H 118/93 H 01/19/21 13:15 01/19/21 13:15 01/19/21 13:15 01/19/21 13:15 General: Alert HEENT: Atraumatic, - - Tracheostomy in place Oral: Moist Mucosa Lungs: Clear to auscultation Cardiovascular: Regular rate Abdomen: Soft Extremities: No clubbing, No cyanosis, No edema Skin: Ulcer/ Wound - See nursing documentation, slough and devitalized tissue present, wounds are down into the muscular fascia, however bone is no longer exposed at this time.Stage IV pressure injuries to sacrum and left buttock. Wound Measurements and Assessment WC - Nurse 1 - General Ulcer Measurement Start: 01/19/21 13:15 Freq: Status: Active Protocol: Activity Type Activity Date Activity User E-Sign Co-Sign Detail Recorded Client Recorded Date Recorded By Document 01/19/21 13:15 [facility] [id number] 01/19/21 13:24 [facility] 01/19/21 13:15 Wound Center Nurse 1 [Ulcer Assessment] #2 L Buttocks -Combined with other wound No -Current Size (cm) - Length 2 -Current Size (cm) - Width 2 -Current Size (cm) - Depth 1.1 -Total Square Cm 4 -Photo Taken No -Epithelialization None Present -Tunneling No -Undermining/Tunneling No -Circular Undermining Yes -Exudate Amt Medium -Exudate Type Serosanguineous -Wound Margin Distinct, Outline Attached -Granulation Amt Large (67-100%) -Granulation Quality Red -Slough/Fibrin Yes -Necrosis Amt Small (1-33%) -Necrotic Tissue Type Adherent Slough -Texture (Ana Lilia-wound Skin Appearance) Assessed, Scarring -Moisture (Ana Lilia-wound Skin Appearance Assessed ) -Color (Ana Lilia-wound Skin Appearance) Assessed -Temperature (Ana Lilia-wound Skin No Abnormality Appearance) (Pt Warm) -Tenderness on Palpation (Ana Lilia-wound No Skin Appearance) -Ulcer Cleansing soapy water -Foul Odor after Cleansing No -Anesthetic Used 4% Lidocaine Solution #1 sacral -Combined with other wound No -Current Size (cm) - Length 5.2 -Current Size (cm) - Width 3 -Current Size (cm) - Depth 1.2 -Total Square Cm 15.6 -Photo Taken No -Epithelialization None Present -Tunneling No -Undermining/Tunneling Yes -Undermining/Tunneling Starts (O' 10 clock) -Undermining/Tunneling Ends (O'clock) 3 -Maximum Distance (cm) 1.4 -Circular Undermining No -Exudate Amt Large -Exudate Type Serosanguineous -Wound Margin Distinct, Outline Attached -Granulation Amt Large (67-100%) -Granulation Quality Red -Slough/Fibrin Yes -Necrosis Amt Small (1-33%) -Necrotic Tissue Type Adherent Slough -Texture (Ana Lilia-wound Skin Appearance) Assessed, Scarring -Moisture (Ana Lilia-wound Skin Appearance Assessed ) -Color (Ana Lilia-wound Skin Appearance) Assessed -Temperature (Ana Lilia-wound Skin No Abnormality Appearance) (Pt Warm) -Tenderness on Palpation (Ana Lilia-wound No Skin Appearance) -Ulcer Cleansing soapy water -Foul Odor after Cleansing No -Anesthetic Used 4% Lidocaine Solution WC - Nurse 2 - General Ulcer CM Notes Start: 01/19/21 13:15 Freq: Status: Active Protocol: Activity Type Activity Date Activity User E-Sign Co-Sign Detail Recorded Client Recorded Date Recorded By Document 01/19/21 13:30 MW [id number] 01/19/21 13:35 MW 01/19/21 13:30 Wound Center Nurse 2 [Procedure/Treatment] #2 L Buttocks -Time 13:30 -Correct Patient Yes -Correct Side, Site, Position Yes -Correct Procedure Yes -Procedure Performed Yes -Type of Procedure Debridement -Clinical Debridement Muscle / Fascia -Tissue Removed Fascia -Post Debridement (cm) - Length 2.2 -Post Debridement (cm) - Width 2.5 -Post Debridement (cm) - Depth 1.8 -Total Square (Post) (cm) 5.50 -Area of Debridement (cm) - Length 2.2 -Area of Debridement (cm) - Width 2.5 -Total Square (Area) (cm) 5.50 -Tunneling No -Undermining/Tunneling No -Circular Undermining No -Wound/Ulcer Outcome Not Healed -Ulcer Cleansing Rinsed/ Irrigated with Saline -Foul Odor after Cleansing No -Bioengineered Tissue No -Bleeding Controlled with Pressure -Offloading No -Treatment Response Procedure Tolerated Well -Debridement - Muscle / Fascia, 1st Yes 20sq cm -Debridement, Muscle/Fascia, ea addt' 1 l 20sq cm or part thereof #1 sacral -Time 13:30 -Correct Patient Yes -Correct Side, Site, Position Yes -Correct Procedure Yes -Procedure Performed Yes -Type of Procedure Debridement -Clinical Debridement Muscle / Fascia -Tissue Removed Fascia -Post Debridement (cm) - Length 5.5 -Post Debridement (cm) - Width 4.5 -Post Debridement (cm) - Depth 1.5 -Total Square (Post) (cm) 24.75 -Area of Debridement (cm) - Length 5.5 -Area of Debridement (cm) - Width 4.5 -Total Square (Area) (cm) 24.75 -Tunneling Yes -Undermining/Tunneling No -Undermining/Tunneling Starts (O' 9 clock) -Undermining/Tunneling Ends (O'clock) 1 -Maximum Distance (cm) 1.0 -Circular Undermining No -Wound/Ulcer Outcome Not Healed -Ulcer Cleansing Rinsed/ Irrigated with Saline -Foul Odor after Cleansing No -Bioengineered Tissue No -Bleeding Controlled with Pressure -Offloading No -Treatment Response Procedure Tolerated Well -Debridement - Muscle / Fascia, 1st No 20sq cm [See Physician Procedure note for Specifics] Pain Scale: 0-10 Numeric [Pain] -Is Patient Pain Free? Yes WC - Nurse 3 - General Ulcer D/C NN Start: 01/19/21 13:15 Freq: Status: Active Protocol: Activity Type Activity Date Activity User E-Sign Co-Sign Detail Recorded Client Recorded Date Recorded By Document 01/19/21 13:57 [facility] [id number] 01/19/21 13:58 [facility] 01/19/21 13:57 Wound Care Nurse 3 [Wound Dressing] #2 L Buttocks -Ulcer Cleansing Rinsed/ Irrigated with Saline -Foul Odor after Cleansing No -Negative Pressure Wound Therapy Continue -Setting (mmHg) 150 -Negative Pressure is Continuous -NPWT Application Charge ($) NPWT </= 50 sq cm #1 sacral -Ulcer Cleansing Rinsed/ Irrigated with Saline -Foul Odor after Cleansing No -Negative Pressure Wound Therapy Continue -Setting (mmHg) 150 -Negative Pressure is Continuous -NPWT Application Charge ($) NPWT </= 50 sq cm [Post Procedure Tolerated] -Treatment Response Procedure Tolerated Well Pain Scale: 0-10 Numeric [Pain] -Is Patient Pain Free? Yes WC - Visit Discharge [Visit Discharge Information] -Discharge Condition Stable -Ambulatory Status Stretcher -Transportation Ambulance -Accompanied by father [Facility Notification] -Facility Type Home Health Musculoskeletal: Muscle Wasting Neurological: - - Unable to assess Debridement Note Post-Debridement Measurements/Treatment WC - Nurse 2 - General Ulcer CM Notes Start: 01/19/21 13:15 Freq: Status: Active Protocol: Activity Type Activity Date Activity User E-Sign Co-Sign Detail Recorded Client Recorded Date Recorded By Document 01/19/21 13:30 MW [id number] 01/19/21 13:35 MW 01/19/21 13:30 Wound Center Nurse 2 #2 L Buttocks -Time 13:30 -Correct Patient Yes -Correct Side, Site, Position Yes -Correct Procedure Yes -Procedure Performed Yes -Type of Procedure Debridement -Clinical Debridement Muscle / Fascia -Tissue Removed Fascia -Post Debridement (cm) - Length 2.2 -Post Debridement (cm) - Width 2.5 -Post Debridement (cm) - Depth 1.8 -Total Square (Post) (cm) 5.50 -Area of Debridement (cm) - Length 2.2 -Area of Debridement (cm) - Width 2.5 -Total Square (Area) (cm) 5.50 -Tunneling No -Undermining/Tunneling No -Circular Undermining No -Wound/Ulcer Outcome Not Healed -Ulcer Cleansing Rinsed/ Irrigated with Saline -Foul Odor after Cleansing No -Bioengineered Tissue No -Bleeding Controlled with Pressure -Offloading No -Treatment Response Procedure Tolerated Well -Debridement - Muscle / Fascia, 1st Yes 20sq cm -Debridement, Muscle/Fascia, ea addt'l 1 20sq cm or part thereof #1 sacral -Time 13:30 -Correct Patient Yes -Correct Side, Site, Position Yes -Correct Procedure Yes -Procedure Performed Yes -Type of Procedure Debridement -Clinical Debridement Muscle / Fascia -Tissue Removed Fascia -Post Debridement (cm) - Length 5.5 -Post Debridement (cm) - Width 4.5 -Post Debridement (cm) - Depth 1.5 -Total Square (Post) (cm) 24.75 -Area of Debridement (cm) - Length 5.5 -Area of Debridement (cm) - Width 4.5 -Total Square (Area) (cm) 24.75 -Tunneling Yes -Undermining/Tunneling No -Undermining/Tunneling Starts (O'clock 9 ) -Undermining/Tunneling Ends (O'clock) 1 -Maximum Distance (cm) 1.0 -Circular Undermining No -Wound/Ulcer Outcome Not Healed -Ulcer Cleansing Rinsed/ Irrigated with Saline -Foul Odor after Cleansing No -Bioengineered Tissue No -Bleeding Controlled with Pressure -Offloading No -Treatment Response Procedure Tolerated Well -Debridement - Muscle / Fascia, 1st No 20sq cm Pain Scale: 0-10 Numeric Is Patient Pain Free? Yes - Nurse 3 - General Ulcer D/C NN Start: 01/19/21 13:15 Freq: Status: Active Protocol: Activity Type Activity Date Activity User E-Sign Co-Sign Detail Recorded Client Recorded Date Recorded By Document 01/19/21 13:57 [facility] [id number] 01/19/21 13:58 [facility] 01/19/21 13:57 Wound Care Nurse 3 #2 L Buttocks -Ulcer Cleansing Rinsed/ Irrigated with Saline -Foul Odor after Cleansing No -Negative Pressure Wound Therapy Continue -Setting (mmHg) 150 -Negative Pressure is Continuous -NPWT Application Charge ($) NPWT </= 50 sq cm #1 sacral -Ulcer Cleansing Rinsed/ Irrigated with Saline -Foul Odor after Cleansing No -Negative Pressure Wound Therapy Continue -Setting (mmHg) 150 -Negative Pressure is Continuous -NPWT Application Charge ($) NPWT </= 50 sq cm Treatment Response Procedure Tolerated Well Pain Scale: 0-10 Numeric Is Patient Pain Free? Yes - Visit Discharge Discharge Condition Stable Ambulatory Status Stretcher Transportation Ambulance Accompanied by [facility] Facility Type Home Health Wound debrided: Stage IV pressure injury to sacrum and left buttock Type of Debridement: Excisional debridement Anesthesia Used: 5% Lidocaine Gel Depth: in the subcutaneous layer, to muscle Percentage of wound debrided: 100 Instrument Used: 7mm curette Tissue Removed: Slough and devitalized tissue Severity: Fat Layer Exposed Amount of bleeding with debridement: Mild Bleeding Controlled with: Pressure Patient tolerated procedure well Assessment/Plan Assessment: See above diagnoses Plan: Debridement done as documented above, procedure was well-tolerated.Con tinue wound VAC And will increase to 150 mmHg. Change 3 times a week and rinse with Dakin solution. Continue offloading, increase protein intake. Blood work was reviewed and showed inflammatory markers were elevated and also prealbumin was low indicating malnutrition. Educated again the importance of protein supplementation. Patient will follow up with his PCP concerning the chronic abnormalities including chronic anemia on his blood work. Their questions were answered and they were advised to call with any further questions or concerns. Follow-up in 1 month or sooner if needed.If wound healing stalls, may need to consider repeat imaging. Patient will be transferred to a palliative wound plan. This note was generated with [employer] dictation software. It may contain incorrect words, spelling, and punctuation that were not noted in checking the note before signing. [id number]: [id number] Katina musc/fascia 20 sq cm/<
== END 2021-02-15 23:59 ==
LOC: WC 13:15
PROVIDERS: Visit Provider Nurse Practitioner Family
DX: L89.154 Pressure ulcer of sacral region, stage 4 (principal); L89.324 Pressure ulcer of left buttock, stage 4; Z93.3 Colostomy status; J96.10 Chronic respiratory failure, unspecified whether with hypoxia or hypercapnia; Z93.0 Tracheostomy status; G71.00 Muscular dystrophy, unspecified; Z74.01 Bed confinement status; Z99.3 Dependence on wheelchair; E46 Unspecified protein-calorie malnutrition; Z68.1 Body mass index [BMI] 19.9 or less, adult
CPT/HCPCS: 11043; 11046; 97605

== ENCOUNTER 2021-01-30 08:13 | Day surgery (SDC) | payer MEDICAID, SELFPAY ==
--- NOTE | 2021-01-23 12:00 | NURSING ---
PAT interview initiated by pt's mother, Ginny, per her returning the call after msg left this a.m. by PAT. Ginny is driving as she is talking on the phone; this RN asked several times for opportunity to call back when she is not driving; Ginny adamant that the phone interview continue. During the interview, Ginny places RN on hold as she drops something off at Dr office. Ginny is informed of the procedure that dr Thorne office provided to PAT. Ginny again places PAT RN on hold while she speaks with . Ginny states said pt was not to receive anesthesia and that she nor were informed of the scheduled bronchoscopy. Ginny terminates phone call stating she wants to talk with Dr Thorne's office first. Ginny states she will call this PAT office back after speaking with Dr Thorne.
[2021-01-30] VITALS (9 sets, daily range): BP systolic 99–125; BP diastolic 75–93; PULSE 64–126; RESP 12–18; TEMP 36.6–37.7; O2SAT 93–100; BMI 16.9
--- NOTE | 2021-01-30 09:04 | DCINST_ITS ---
Additional Activity Instructions:: Resume all pre operative medications, feedings, tube care. Allergies/Adverse Reactions: Allergies No Known Allergies Allergy (Verified 01/23/21 11:40) Medications to take at Discharge Famotidine [Pepcid] 20 mg GT DAILY 11/03/20 Metoprolol Tartrate 25 mg GT TID 11/03/20 Levetiracetam [Keppra] 100 mg GT BID 11/16/20 Chlorhexidine Gluconate [Periogard] 473 ml MM DAILY 01/23/21 Ipratropium/Albuterol Sulfate [Duoneb] 3 ml INHALATION Q6H.RT 01/23/21 Primary Care Physician: Angus Perez MD [Primary Care Provider] - Test Results: Test results from this visit will be discussed in further detail at your follow- up appointment, if applicable.
[2021-01-30] MEDS: Lactated Ringers 1,000 ML 100 ML IV (09:26)
--- NOTE | 2021-01-30 11:11 | OP.PCM_ITS ---
Report of Operation Date of Procedure: 01/30/21 Pre-Operative Diagnosis: respiratory failure Post-Operative Diagnosis: same Surgery/Procedure Performed:: Tracheoscopy. Tracheotomy tube change Description of Surgical Findings:: normal trachea Type of Anesthesia:: None Anesthesiologist: Jason Ng Estimated Blood Loss (mL): <3 cc Description of Procedure: Patient was taken to the operating room on 01/30/2021. He was left on the operating room cart. The old #8 cuffed tube was removed and a new #8 DCT tube was placed without difficulty and the cuff was inflated. The inner cannula was placed and the patient was rehooked to the ventilatory circuit. Next the trachea was suctioned of copious secretions. I then placed a flexible bronch oscope into the ventilatory circuit. The trachea was inspected down to the imani and was found to be normal. I then placed the bronchoscope at the end of the tracheotomy tube and I backed the tracheotomy tube out to inspect the posterior wall of the trachea and it was found to be normal. The bronchoscope was then removed. We then suctioned the patient again. The procedure was then terminated the patient was removed from the operating room in stable condition. Blood loss less than 3 cc replacement none. Sponge, instrument count were correct at the end of the procedure.
== END 2021-01-30 12:23 | disposition home or self-care (01) ==
LOC: SDC 08:14 → AC 08:15
PROVIDERS: PCP Family Medicine; Referring Provider Otolaryngology; Visit Provider Otolaryngology
PROC: (CPT 31502; principal; 2021-01-30 10:20)
DX: J96.90 Respiratory failure, unspecified, unspecified whether with hypoxia or hypercapnia (principal); G71.00 Muscular dystrophy, unspecified; I10 Essential (primary) hypertension; R56.9 Unspecified convulsions; K21.9 Gastro-esophageal reflux disease without esophagitis; D64.9 Anemia, unspecified; Z99.11 Dependence on respirator [ventilator] status; Z79.899 Other long term (current) drug therapy; Z20.822 Contact with and (suspected) exposure to COVID-19
CPT/HCPCS: 31502; 87426; J7120

== ENCOUNTER 2021-03-02 13:30 | Outpatient (RCR) | payer MEDICAID, SELFPAY ==
[2021-01-30 09:06] VITALS: BMI 16.9
[2021-02-16 00:15] VITALS: BP 118/93; PULSE 121; RESP 20; TEMP 36.6
[2021-02-16 13:48] VITALS: BP 120/80; PULSE 109; RESP 18; TEMP 36.7; BMI 16.9
--- NOTE | 2021-02-16 16:28 | PCM.WC.PN ---
(1) Pressure injury of left buttock, stage 4 Status: Acute Code(s): L89.324 - Pressure ulcer of left buttock, stage 4 (2) Pressure injury of sacral region, stage 4 Status: Acute Code(s): L89.154 - Pressure ulcer of sacral region, stage 4 (3) Colostomy in place Status: Acute Code(s): Z93.3 - Colostomy status (4) Malnutrition Status: Acute Code(s): E46 - Unspecified protein-calorie malnutrition (5) Muscular dystrophy Status: Acute Code(s): G71.00 - Muscular dystrophy, unspecified (6) Tracheostomy in place Status: Acute Code(s): Z93.0 - Tracheostomy status (7) Chronic respiratory failure Status: Chronic Code(s): J96.10 - Chronic respiratory failure, unspecified whether with hypoxia or hypercapnia Type of Wound Date of Service: 02/16/21 Chief Complaint: stage four pressure injuries to sacrum and buttock History of Wound: This is a 25-year-old male who presents to the wound healing center today with stage IV pressure injuries to his sacrum and left buttock. He has with his father today. The patient is wheelchair-bound/bedbound and has a tracheostomy in place and has a history of severe muscular dystrophy, debility, and prior myocutaneous flap repair to sacral pressure ulcer. Patient is not verbal during today's office visit and from information gathered from the father the wounds have been present for greater than 6 months now. The patient underwent surgery in March 2020 to have his myocutaneous flap to close the sacral pressure ulcer. Afterwards per report of father he was hospitalized for pneumonia and developed another pressure injury to his left buttock. He was last seen by wound care in June 2020 and was placed on a wound VAC. The patient did not follow-up with wound care afterwards but did have home care nursing coming out 3 times a week. The father states that the wound VAC was discontinued a couple weeks ago. Since then they have been using an alginate dressing packed and changed daily. Denies any systemic or local signs of infection at this time. Denies any other acute concerns. Past medical, family, and social history reviewed and not pertinent to the current visit and all other systems reviewed and negative with exception of those listed above. Progress of Wound: No new concerns. Tolerating wound Vac and completed doxycycline. Doing well with home health 3 times a week as well. Patient's father wishes to hold off on surgical consult at this time as wounds are improving. Currently no bone is exposed in the wounds at this time. Will do a VAC holiday for 2 weeks and utilize packing with silver cell daily.Patient's father wishes to remain on a palliative plan and be seen only once every 4 weeks due to difficulty with transportation. - Physical Exam Vital Signs Temp Pulse Resp BP 98.1 F 109 H 18 120/80 02/16/21 13:48 02/16/21 13:48 02/16/21 13:48 02/16/21 13:48 General: Alert, No apparent distress HEENT: Atraumatic Lungs: Clear to auscultation, - - Tracheostomy Cardiovascular: Regular rate Abdomen: - - Colostomy in place Skin: Ulcer/ Wound - Stage IV pressure injury to sacrum and left buttock with adherent slough, muscle fascia exposed, no bone exposure at this time, no signs of obvious infection Wound Measurements and Assessment WC - Nurse 1 - General Ulcer Measurement Start: 02/16/21 13:48 Freq: Status: Active Protocol: Activity Type Activity Date Activity User E-Sign Co-Sign Detail Recorded Client Recorded Date Recorded By Document 02/16/21 13:48 DL [id number] 02/16/21 13:51 DL 02/16/21 13:48 Wound Center Nurse 1 [Ulcer Assessment] #2 L Buttocks -Current Size (cm) - Length 1.7 -Current Size (cm) - Width 1.7 -Current Size (cm) - Depth 1.1 -Total Square Cm 2.89 -Photo Taken No -Maximum Distance #2 (cm) 1.8 -Circular Undermining Yes -Exudate Amt Medium -Exudate Type Serosanguineous -Wound Margin Distinct, Outline Attached -Granulation Amt Large (67-100%) -Granulation Quality Red -Necrosis Amt Small (1-33%) -Necrotic Tissue Type Adherent Slough -Structure Exposed N/A -Texture (Ana Lilia-wound Skin Appearance) Scarring -Moisture (Ana Lilia-wound Skin Appearance No Abnormality ) -Color (Ana Lilia-wound Skin Appearance) No Abnormality -Temperature (Ana Lilia-wound Skin No Abnormality Appearance) (Pt Warm) -Tenderness on Palpation (Ana Lilia-wound No Skin Appearance) -Ulcer Cleansing Wound Cleanser -Foul Odor after Cleansing No -Anesthetic Used 4% Lidocaine Solution #1 sacral -Current Size (cm) - Length 5 -Current Size (cm) - Width 4 -Current Size (cm) - Depth 1.4 -Total Square Cm 20 -Photo Taken No -Exudate Amt Medium -Exudate Type Serosanguineous -Wound Margin Distinct, Outline Attached -Granulation Amt Large (67-100%) -Granulation Quality Red -Necrosis Amt Small (1-33%) -Necrotic Tissue Type Adherent Slough -Structure Exposed N/A -Texture (Ana Lilia-wound Skin Appearance) Scarring -Moisture (Ana Lilia-wound Skin Appearance No Abnormality ) -Color (Ana Lilia-wound Skin Appearance) No Abnormality -Temperature (Ana Lilia-wound Skin No Abnormality Appearance) (Pt Warm) -Tenderness on Palpation (Ana Lilia-wound No Skin Appearance) -Ulcer Cleansing Wound Cleanser -Foul Odor after Cleansing No -Anesthetic Used 4% Lidocaine Solution WC - Nurse 2 - General Ulcer CM Notes Start: 02/16/21 13:48 Freq: Status: Active Protocol: Activity Type Activity Date Activity User E-Sign Co-Sign Detail Recorded Client Recorded Date Recorded By Document 02/16/21 14:15 MW [id number] 02/16/21 14:21 MW 02/16/21 14:15 Wound Center Nurse 2 [Procedure/Treatment] #2 L Buttocks -Time 14:19 -Correct Patient Yes -Correct Side, Site, Position Yes -Correct Procedure Yes -Procedure Performed Yes -Type of Procedure Debridement -Clinical Debridement Subcutaneous -Tissue Removed Subcutaneous -Post Debridement (cm) - Length 2.0 -Post Debridement (cm) - Width 2.2 -Post Debridement (cm) - Depth 1.5 -Total Square (Post) (cm) 4.40 -Area of Debridement (cm) - Length 2.0 -Area of Debridement (cm) - Width 2.2 -Total Square (Area) (cm) 4.40 -Tunneling No -Undermining/Tunneling No -Circular Undermining No -Wound/Ulcer Outcome Not Healed -Ulcer Cleansing Rinsed/ Irrigated with Saline -Foul Odor after Cleansing No -Bioengineered Tissue No -Bleeding Controlled with Pressure -Offloading No -Treatment Response Procedure Tolerated Well -Debridement - Subq, 1st 20sq cm Yes -Debridement, SubQ, ea addt'l 20sq cm 1 or part thereof #1 sacral -Time 14:18 -Correct Patient Yes -Correct Side, Site, Position Yes -Correct Procedure Yes -Procedure Performed Yes -Type of Procedure Debridement -Clinical Debridement Subcutaneous -Tissue Removed Subcutaneous -Post Debridement (cm) - Length 5.5 -Post Debridement (cm) - Width 5.0 -Post Debridement (cm) - Depth 1.8 -Total Square (Post) (cm) 27.50 -Area of Debridement (cm) - Length 5.5 -Area of Debridement (cm) - Width 5.0 -Total Square (Area) (cm) 27.50 -Tunneling No -Undermining/Tunneling No -Circular Undermining No -Wound/Ulcer Outcome Not Healed -Ulcer Cleansing Rinsed/ Irrigated with Saline -Foul Odor after Cleansing No -Bioengineered Tissue No -Bleeding Controlled with Pressure -Offloading No -Treatment Response Procedure Tolerated Well -Debridement - Subq, 1st 20sq cm Yes [See Physician Procedure note for Specifics] Pain Scale: 0-10 Numeric [Pain] -Is Patient Pain Free? Yes - Nurse 3 - General Ulcer D/C NN Start: 02/16/21 13:48 Freq: Status: Active Protocol: Activity Type Activity Date Activity User E-Sign Co-Sign Detail Recorded Client Recorded Date Recorded By Document 02/16/21 14:39 DL [id number] 02/16/21 14:41 DL 02/16/21 14:39 Wound Care Nurse 3 [Wound Dressing] #2 L Buttocks -Ulcer Cleansing Rinsed/ Irrigated with Saline -Foul Odor after Cleansing No -Primary Dressing Applied Silvercel -Primary Dressing Covered/Secured Dry Gauze, with Secured with Tape -Silvercel 1 #1 sacral -Ulcer Cleansing Rinsed/ Irrigated with Saline -Foul Odor after Cleansing No -Other Dressing silvercell -Primary Dressing Covered/Secured Dry Gauze, with Secured with Tape [Post Procedure Tolerated] -Treatment Response Procedure Tolerated Well Pain Scale: 0-10 Numeric [Pain] -Is Patient Pain Free? Yes - Visit Discharge [Visit Discharge Information] -Discharge Condition Stable -Ambulatory Status Stretcher -Transportation Ambulance Neurological: - - Unable to assess Psych/Mental Status: - - Unable to assess Debridement Note Post-Debridement Measurements/Treatment - Nurse 2 - General Ulcer CM Notes Start: 02/16/21 13:48 Freq: Status: Active Protocol: Activity Type Activity Date Activity User E-Sign Co-Sign Detail Recorded Client Recorded Date Recorded By Document 02/16/21 14:15 MW [id number] 02/16/21 14:21 MW 02/16/21 14:15 Wound Center Nurse 2 #2 L Buttocks -Time 14:19 -Correct Patient Yes -Correct Side, Site, Position Yes -Correct Procedure Yes -Procedure Performed Yes -Type of Procedure Debridement -Clinical Debridement Subcutaneous -Tissue Removed Subcutaneous -Post Debridement (cm) - Length 2.0 -Post Debridement (cm) - Width 2.2 -Post Debridement (cm) - Depth 1.5 -Total Square (Post) (cm) 4.40 -Area of Debridement (cm) - Length 2.0 -Area of Debridement (cm) - Width 2.2 -Total Square (Area) (cm) 4.40 -Tunneling No -Undermining/Tunneling No -Circular Undermining No -Wound/Ulcer Outcome Not Healed -Ulcer Cleansing Rinsed/ Irrigated with Saline -Foul Odor after Cleansing No -Bioengineered Tissue No -Bleeding Controlled with Pressure -Offloading No -Treatment Response Procedure Tolerated Well -Debridement - Subq, 1st 20sq cm Yes -Debridement, SubQ, ea addt'l 20sq cm 1 or part thereof #1 sacral -Time 14:18 -Correct Patient Yes -Correct Side, Site, Position Yes -Correct Procedure Yes -Procedure Performed Yes -Type of Procedure Debridement -Clinical Debridement Subcutaneous -Tissue Removed Subcutaneous -Post Debridement (cm) - Length 5.5 -Post Debridement (cm) - Width 5.0 -Post Debridement (cm) - Depth 1.8 -Total Square (Post) (cm) 27.50 -Area of Debridement (cm) - Length 5.5 -Area of Debridement (cm) - Width 5.0 -Total Square (Area) (cm) 27.50 -Tunneling No -Undermining/Tunneling No -Circular Undermining No -Wound/Ulcer Outcome Not Healed -Ulcer Cleansing Rinsed/ Irrigated with Saline -Foul Odor after Cleansing No -Bioengineered Tissue No -Bleeding Controlled with Pressure -Offloading No -Treatment Response Procedure Tolerated Well -Debridement - Subq, 1st 20sq cm Yes Pain Scale: 0-10 Numeric Is Patient Pain Free? Yes WC - Nurse 3 - General Ulcer D/C NN Start: 02/16/21 13:48 Freq: Status: Active Protocol: Activity Type Activity Date Activity User E-Sign Co-Sign Detail Recorded Client Recorded Date Recorded By Document 02/16/21 14:39 DL [id number] 02/16/21 14:41 DL 02/16/21 14:39 Wound Care Nurse 3 #2 L Buttocks -Ulcer Cleansing Rinsed/ Irrigated with Saline -Foul Odor after Cleansing No -Primary Dressing Applied Silvercel -Primary Dressing Covered/Secured with Dry Gauze, Secured with Tape -Silvercel 1 #1 sacral -Ulcer Cleansing Rinsed/ Irrigated with Saline -Foul Odor after Cleansing No -Other Dressing silvercell -Primary Dressing Covered/Secured with Dry Gauze, Secured with Tape Treatment Response Procedure Tolerated Well Pain Scale: 0-10 Numeric Is Patient Pain Free? Yes WC - Visit Discharge Discharge Condition Stable Ambulatory Status Stretcher Transportation Ambulance Wound debrided: Stage IV pressure injury to sacrum and left buttock Laterality: Left Type of Debridement: Excisional debridement Anesthesia Used: 5% Lidocaine Gel Depth: Down to and including healthy tissue, in the subcutaneous layer, to muscle Percentage of wound debrided: 100 Instrument Used: 5mm curette Tissue Removed: Slough and devitalized tissue Severity: Fat Layer Exposed Amount of bleeding with debridement: Mild Bleeding Controlled with: Pressure Patient tolerated procedure well Assessment/Plan Active Problems Pressure injury of sacral region, stage 4 (Acute) Pressure injury of left buttock, stage 4 (Acute) Malnutrition (Acute) Muscular dystrophy (Acute) Tracheostomy in place (Acute) Chronic respiratory failure (Chronic) Colostomy in place (Acute) Assessment: See above diagnoses Plan: Debridement done as documented above, procedure was well-tolerated.Will do a wound VAC holiday and utilize packing with silver cell daily and rinse with Dakin solution. ABD over top and continue offloading, increase protein intake. Blood work was reviewed and showed inflammatory markers were elevated and also prealbumin was low indicating malnutrition. Educated again the importance of protein supplementation. Patient will follow up with his PCP concerning the chronic abnormalities including chronic anemia on his blood work. Their questions were answered and they were advised to call with any further questions or concerns. Follow-up in 1 month or sooner if needed.If wound healing stalls, may need to consider repeat imaging. Patient will be transferred to a palliative wound plan. This note was generated with Dragon dictation software. It may contain incorrect words, spelling, and punctuation that were not noted in checking the note before signing. [id number]: [id number] Katina musc/fascia 20 sq cm/< Add On Codes: [id number] Katina musc/fascia add-on
[2021-03-02 13:26] VITALS: BP 129/82; PULSE 119; TEMP 36.6; BMI 16.9
--- NOTE | 2021-03-02 16:29 | PN.PCM_ITS ---
(1) Pressure injury of left buttock, stage 4 Status: Acute Code(s): L89.324 - Pressure ulcer of left buttock, stage 4 (2) Pressure injury of sacral region, stage 4 Status: Acute Code(s): L89.154 - Pressure ulcer of sacral region, stage 4 (3) Colostomy in place Status: Acute Code(s): Z93.3 - Colostomy status (4) Malnutrition Status: Acute Code(s): E46 - Unspecified protein-calorie malnutrition (5) Muscular dystrophy Status: Acute Code(s): G71.00 - Muscular dystrophy, unspecified (6) Tracheostomy in place Status: Acute Code(s): Z93.0 - Tracheostomy status (7) Chronic respiratory failure Status: Chronic Code(s): J96.10 - Chronic respiratory failure, unspecified whether with hypoxia or hypercapnia Type of Wound Date of Service: 03/02/21 Chief Complaint: stage four pressure injuries to sacrum and buttock History of Wound: This is a 25-year-old male who presents to the wound healing center today with stage IV pressure injuries to his sacrum and left buttock. He has with his father today. The patient is wheelchair-bound/bedbound and has a tracheostomy in place and has a history of severe muscular dystrophy, debility, and prior myocutaneous flap repair to sacral pressure ulcer. Patient is not verbal during today's office visit and from information gathered from the father the wounds have been present for greater than 6 months now. The patient underwent surgery in March 2020 to have his myocutaneous flap to close the sacral pressure ulcer. Afterwards per report of father he was hospitalized for pneumonia and developed another pressure injury to his left buttock. He was last seen by wound care in June 2020 and was placed on a wound VAC. The patient did not follow-up with wound care afterwards but did have home care nursing coming out 3 times a week. The father states that the wound VAC was discontinued a couple weeks ago. Since then they have been using an alginate dressing packed and changed daily. Denies any systemic or local signs of infection at this time. Denies any other acute concerns. Past medical, family, and social history reviewed and not pertinent to the current visit and all other systems reviewed and negative with exception of those listed above. Progress of Wound: No new concerns. Doing well with the daily dressing changes of silver cell. Size has improved and therefore will DC VAC entirely. Patient's father wishes to hold off on surgical consult at this time as wounds are improving. Currently no bone is exposed in the wounds at this time. Patient's father wishes to remain on a palliative plan and be seen only once every 4 weeks due to difficulty with transportation. - Physical Exam Vital Signs Temp Pulse Resp BP 97.8 F 119 H 18 129/82 H 03/02/21 13:26 03/02/21 13:26 02/16/21 13:48 03/02/21 13:26 General: No apparent distress HEENT: Atraumatic Oral: Moist Mucosa Lungs: Clear to auscultation Cardiovascular: Regular rate Extremities: No clubbing, No cyanosis, No edema Skin: Ulcer/ Wound - See nursing documentation, stage IV pressure injuries on buttock and sacrum with adherent slough, no signs of obvious infection at this time Wound Measurements and Assessment WC - Nurse 1 - General Ulcer Measurement Start: 02/16/21 13:48 Freq: Status: Active Protocol: Activity Type Activity Date Activity User E-Sign Co-Sign Detail Recorded Client Recorded Date Recorded By Document 03/02/21 13:26 RAJESH [id number] 03/02/21 13:30 KR 03/02/21 13:26 Wound Center Nurse 1 [Ulcer Assessment] #2 L Buttocks -Current Size (cm) - Length 1.8 -Current Size (cm) - Width 1.8 -Current Size (cm) - Depth 0.8 -Total Square Cm 3.24 -Undermining/Tunneling Starts (O' 1 clock) -Undermining/Tunneling Ends (O'clock) 4 -Maximum Distance (cm) 0.4 -Exudate Amt Medium -Exudate Type Serosanguineous -Wound Margin Distinct, Outline Attached -Granulation Amt Large (67-100%) -Granulation Quality Red -Necrosis Amt None Present (0 %) -Texture (Ana Lilia-wound Skin Appearance) Assessed, Scarring -Moisture (Ana Lilia-wound Skin Appearance Assessed, ) Maceration -Color (Ana Lilia-wound Skin Appearance) No Abnormality, Assessed -Temperature (Ana Lilia-wound Skin No Abnormality Appearance) (Pt Warm) -Tenderness on Palpation (Ana Lilia-wound No Skin Appearance) -Ulcer Cleansing Rinsed/ Irrigated with Saline -Foul Odor after Cleansing No -Anesthetic Used 4% Lidocaine Solution #1 sacral -Current Size (cm) - Length 5 -Current Size (cm) - Width 3.2 -Current Size (cm) - Depth 1.1 -Total Square Cm 16.0 -Undermining/Tunneling Starts (O' 12 clock) -Undermining/Tunneling Ends (O'clock) 1 -Maximum Distance (cm) 0.6 -Wound Margin Distinct, Outline Attached -Granulation Amt Large (67-100%) -Granulation Quality Red -Necrosis Amt None Present (0 %) -Texture (Ana Lilia-wound Skin Appearance) Assessed, Scarring -Moisture (Ana Lilia-wound Skin Appearance No Abnormality, ) Assessed -Color (Ana Lilia-wound Skin Appearance) No Abnormality, Assessed -Temperature (Ana Lilia-wound Skin No Abnormality Appearance) (Pt Warm) -Tenderness on Palpation (Ana Lilia-wound No Skin Appearance) -Ulcer Cleansing Rinsed/ Irrigated with Saline -Foul Odor after Cleansing No -Anesthetic Used 4% Lidocaine Solution WC - Nurse 2 - General Ulcer CM Notes Start: 02/16/21 13:48 Freq: Status: Active Protocol: Activity Type Activity Date Activity User E-Sign Co-Sign Detail Recorded Client Recorded Date Recorded By Document 03/02/21 13:40 MW [id number] 03/02/21 13:43 MW 03/02/21 13:40 Wound Center Nurse 2 [Procedure/Treatment] #2 L Buttocks -Time 13:40 -Correct Patient Yes -Correct Side, Site, Position Yes -Correct Procedure Yes -Procedure Performed Yes -Type of Procedure Debridement -Clinical Debridement Muscle / Fascia -Tissue Removed Muscle,Fascia -Post Debridement (cm) - Length 2.0 -Post Debridement (cm) - Width 2.0 -Post Debridement (cm) - Depth 0.9 -Total Square (Post) (cm) 4.00 -Area of Debridement (cm) - Length 2.0 -Area of Debridement (cm) - Width 2.0 -Total Square (Area) (cm) 4.00 -Tunneling No -Undermining/Tunneling No -Circular Undermining No -Wound/Ulcer Outcome Not Healed -Ulcer Cleansing Rinsed/ Irrigated with Saline -Foul Odor after Cleansing No -Bioengineered Tissue No -Bleeding Controlled with Pressure -Offloading No -Treatment Response Procedure Tolerated Well -Debridement - Muscle / Fascia, 1st Yes 20sq cm #1 sacral -Time 13:41 -Correct Patient Yes -Correct Side, Site, Position Yes -Correct Procedure Yes -Procedure Performed Yes -Type of Procedure Debridement -Clinical Debridement Muscle / Fascia -Tissue Removed Muscle,Fascia -Post Debridement (cm) - Length 5.0 -Post Debridement (cm) - Width 3.0 -Post Debridement (cm) - Depth 1.0 -Total Square (Post) (cm) 15.00 -Area of Debridement (cm) - Length 5.0 -Area of Debridement (cm) - Width 3.0 -Total Square (Area) (cm) 15.00 -Tunneling No -Undermining/Tunneling No -Circular Undermining No -Wound/Ulcer Outcome Not Healed -Ulcer Cleansing Rinsed/ Irrigated with Saline -Foul Odor after Cleansing No -Bioengineered Tissue No -Bleeding Controlled with Pressure -Offloading No -Debridement - Muscle / Fascia, 1st No 20sq cm [See Physician Procedure note for Specifics] Pain Scale: 0-10 Numeric [Pain] -Is Patient Pain Free? Yes - Nurse 3 - General Ulcer D/C NN Start: 02/16/21 13:48 Freq: Status: Active Protocol: Activity Type Activity Date Activity User E-Sign Co-Sign Detail Recorded Client Recorded Date Recorded By Document 03/02/21 13:52 KR [id number] 03/02/21 13:53 KR 03/02/21 13:52 Wound Care Nurse 3 [Wound Dressing] #2 L Buttocks -Primary Dressing Applied Silvercel -Primary Dressing Covered/Secured Dry Gauze, with Secured with Tape -Silvercel 1 #1 sacral -Primary Dressing Covered/Secured Dry Gauze, with Secured with Tape Pain Scale: 0-10 Numeric [Pain] -Is Patient Pain Free? Yes - Visit Discharge [Visit Discharge Information] -Discharge Condition Stable -Ambulatory Status Steady -Transportation Ambulance Musculoskeletal: Muscle Wasting Neurological: - - Unable to assess Psych/Mental Status: - - unAble to assess Debridement Note Post-Debridement Measurements/Treatment - Nurse 2 - General Ulcer CM Notes Start: 02/16/21 13:48 Freq: Status: Active Protocol: Activity Type Activity Date Activity User E-Sign Co-Sign Detail Recorded Client Recorded Date Recorded By Document 02/16/21 14:15 MW [id number] 02/16/21 14:21 MW Document 03/02/21 13:40 MW [id number] 03/02/21 13:43 MW 02/16/21 03/02/21 14:15 13:40 Wound Center Nurse 2 #2 L Buttocks -Time 14:19 13:40 -Correct Patient Yes Yes -Correct Side, Site, Position Yes Yes -Correct Procedure Yes Yes -Procedure Performed Yes Yes -Type of Procedure Debridement Debridement -Clinical Debridement Subcutaneous Muscle / Fascia -Tissue Removed Subcutaneous Muscle,Fascia -Post Debridement (cm) - Length 2.0 2.0 -Post Debridement (cm) - Width 2.2 2.0 -Post Debridement (cm) - Depth 1.5 0.9 -Total Square (Post) (cm) 4.40 4.00 -Area of Debridement (cm) - Length 2.0 2.0 -Area of Debridement (cm) - Width 2.2 2.0 -Total Square (Area) (cm) 4.40 4.00 -Tunneling No No -Undermining/Tunneling No No -Circular Undermining No No -Wound/Ulcer Outcome Not Healed Not Healed -Ulcer Cleansing Rinsed/ Rinsed/ Irrigated with Irrigated with Saline Saline -Foul Odor after Cleansing No No -Bioengineered Tissue No No -Bleeding Controlled with Pressure Pressure -Offloading No No -Treatment Response Procedure Procedure Tolerated Well Tolerated Well -Debridement - Subq, 1st 20sq cm Yes -Debridement, SubQ, ea addt'l 20sq cm 1 or part thereof -Debridement - Muscle / Fascia, 1st Yes 20sq cm #1 sacral -Time 14:18 13:41 -Correct Patient Yes Yes -Correct Side, Site, Position Yes Yes -Correct Procedure Yes Yes -Procedure Performed Yes Yes -Type of Procedure Debridement Debridement -Clinical Debridement Subcutaneous Muscle / Fascia -Tissue Removed Subcutaneous Muscle,Fascia -Post Debridement (cm) - Length 5.5 5.0 -Post Debridement (cm) - Width 5.0 3.0 -Post Debridement (cm) - Depth 1.8 1.0 -Total Square (Post) (cm) 27.50 15.00 -Area of Debridement (cm) - Length 5.5 5.0 -Area of Debridement (cm) - Width 5.0 3.0 -Total Square (Area) (cm) 27.50 15.00 -Tunneling No No -Undermining/Tunneling No No -Circular Undermining No No -Wound/Ulcer Outcome Not Healed Not Healed -Ulcer Cleansing Rinsed/ Rinsed/ Irrigated with Irrigated with Saline Saline -Foul Odor after Cleansing No No -Bioengineered Tissue No No -Bleeding Controlled with Pressure Pressure -Offloading No No -Treatment Response Procedure Tolerated Well -Debridement - Subq, 1st 20sq cm Yes -Debridement - Muscle / Fascia, 1st No 20sq cm Pain Scale: 0-10 Numeric Is Patient Pain Free? Yes Yes - Nurse 3 - General Ulcer D/C NN Start: 02/16/21 13:48 Freq: Status: Active Protocol: Activity Type Activity Date Activity User E-Sign Co-Sign Detail Recorded Client Recorded Date Recorded By Document 02/16/21 14:39 DL [id number] 02/16/21 14:41 DL Document 03/02/21 13:52 KR [id number] 03/02/21 13:53 KR 02/16/21 03/02/21 14:39 13:52 Wound Care Nurse 3 #2 L Buttocks -Ulcer Cleansing Rinsed/ Irrigated with Saline -Foul Odor after Cleansing No -Primary Dressing Applied Silvercel Silvercel -Primary Dressing Covered/Secured with Dry Gauze, Dry Gauze, Secured with Secured with Tape Tape -Silvercel 1 1 #1 sacral -Ulcer Cleansing Rinsed/ Irrigated with Saline -Foul Odor after Cleansing No -Other Dressing silvercell -Primary Dressing Covered/Secured with Dry Gauze, Dry Gauze, Secured with Secured with Tape Tape Treatment Response Procedure Tolerated Well Pain Scale: 0-10 Numeric Is Patient Pain Free? Yes Yes - Visit Discharge Discharge Condition Stable Stable Ambulatory Status Stretcher Steady Transportation Ambulance Ambulance Wound debrided: Stage IV pressure injury to sacrum and left buttock Laterality: Left Type of Debridement: Excisional debridement Anesthesia Used: 5% Lidocaine Gel Depth: in the subcutaneous layer, to muscle Percentage of wound debrided: 100 Instrument Used: 5mm curette Tissue Removed: Slough and devitalized tissue Severity: Fat Layer Exposed Amount of bleeding with debridement: Mild Bleeding Controlled with: Pressure Patient tolerated procedure well Assessment/Plan Active Problems Pressure injury of sacral region, stage 4 (Acute) Pressure injury of left buttock, stage 4 (Acute) Malnutrition (Acute) Muscular dystrophy (Acute) Tracheostomy in place (Acute) Chronic respiratory failure (Chronic) Colostomy in place (Acute) Assessment: See above diagnoses Plan: Debridement done as documented above, procedure was well-tolerated.wound care will consist of utilizing packing with silver cell daily and rinse with Dakin solution. ABD over top and continue offloading, increase protein intake. Blood work was reviewed and showed inflammatory markers were elevated and also prealbumin was low indicating malnutrition. Educated again the importance of protein supplementation. Patient will follow up with his PCP concerning the chronic abnormalities including chronic anemia on his blood work. Their questions were answered and they were advised to call with any further questions or concerns. Follow-up in 1 month or sooner if needed.If wound healing stalls, may need to consider repeat imaging. Patient will be transferred to a palliative wound plan. This note was generated with [employer] dictation software. It may contain incorrect words, spelling, and punctuation that were not noted in checking the note before signing. [id number]: [id number] Katina musc/fascia 20 sq cm/<
== END 2021-03-17 23:59 ==
LOC: WC 13:30
PROVIDERS: PCP Family Medicine; Visit Provider Nurse Practitioner Family
DX: L89.154 Pressure ulcer of sacral region, stage 4 (principal); L89.324 Pressure ulcer of left buttock, stage 4; Z93.3 Colostomy status; G71.00 Muscular dystrophy, unspecified; J96.10 Chronic respiratory failure, unspecified whether with hypoxia or hypercapnia; Z93.0 Tracheostomy status; Z74.01 Bed confinement status
CPT/HCPCS: 11042; 11043; 11045

== ENCOUNTER 2021-05-04 14:00 | Outpatient (RCR) | payer MEDICAID, SELFPAY ==
[2021-03-18 00:18] VITALS: BP 129/82; PULSE 119; RESP 18; TEMP 36.6
[2021-05-04 13:54] VITALS: BP 112/63; PULSE 113; RESP 18; TEMP 36.7; BMI 16.9
--- NOTE | 2021-05-04 22:04 | PCM.WC.PN ---
History of Present Illness Date of Service: 05/04/21 Chief Complaint: stage four pressure injuries to sacrum and buttock History of Wound: This is a 25-year-old male who presents to the wound healing center today with stage IV pressure injuries to his sacrum and left buttock. He has with his father today. The patient is wheelchair-bound/bedbound and has a tracheostomy in place and has a history of severe muscular dystrophy, debility, and prior myocutaneous flap repair to sacral pressure ulcer. Patient is not verbal during today's office visit and from information gathered from the father the wounds have been present for greater than 6 months now. The patient underwent surgery in March 2020 to have his myocutaneous flap to close the sacral pressure ulcer. Afterwards per report of father he was hospitalized for pneumonia and developed another pressure injury to his left buttock. He was last seen by wound care in June 2020 and was placed on a wound VAC. The patient did not follow-up with wound care afterwards but did have home care nursing coming out 3 times a week. The father states that the wound VAC was discontinued a couple weeks ago. Since then they have been using an alginate dressing packed and changed daily. Denies any systemic or local signs of infection at this time. Denies any other acute concerns. Past medical, family, and social history reviewed and not pertinent to the current visit and all other systems reviewed and negative with exception of those listed above. Progress of Wound: Stable?no new concerns, father is wanting to consider a palliative care consult to help assist with wound care Objective Data Objective Data Vital Signs: Vital Signs Temp Pulse Resp BP 98.0 F 113 H 18 112/63 05/04/21 13:54 05/04/21 13:54 05/04/21 13:54 05/04/21 13:54 Oxygen Flow Rate (L/min) 4 Oxygen Delivery Method Trach Collar Weight: 98 lb Body Mass Index (BMI) 16.9 Charges/Coding Procedures Integumentary 111xxx-113xx: 10097 Katina subq tissue 20 sq cm/< Physical Exam Const alert; Negative for oriented x3 Nutritional Appearance: cachectic HEENT Head and Scalp: atraumatic Resp Resp Narrative: Tracheostomy in place Cardio regular rate GI GI Narrative: Colostomy Skin Wound Narrative: See nursing documentation, stage IV pressure injury to sacrum and left buttock with adherent slough, bone is no longer exposed. Minimal undermining and no purulent drainage or signs of obvious infection at this time Psych Psych Narrative: Unable to assess Debridement Note Debridement Note Post-Debridement Measurements and Additional Note: Post-Debridement Measurements/Treatment - Nurse 1 - General Ulcer Assessment Start: 05/04/21 13:54 Freq: Status: Active Protocol: DORI Activity Type Activity Date Activity User E-Sign Co-Sign Detail Recorded Client Recorded Date Recorded By Document 05/04/21 13:54 MW [id number] 05/04/21 14:08 MW 05/04/21 13:54 WC - Today's Visit Information Type of service Follow-up Visit (Physician/COAL DRIER OPERATOR ) Arrival Mode Stretcher Transfer Assistance Manual Accompanied by dad Patient Identification Verified (Name & Yes ) Patient Requires Transmission-Based No Precautions Safety Precautions Fall Prevention Height and Weight Body Mass Index (BMI) 16.9 BMI Classification Underweight Vital Signs Temperature (97.8 F-99.1 F) 98.0 F Temperature Source Temporal Pulse Rate (60-100) 113 H Pulse Location Monitor Respiratory Rate (12-18) 18 Respiratory rate source Observation Oxygen Delivery Method Trach Collar O2 L/MIN (L/min) 4 Blood Pressure (90/60-120/80) 112/63 Blood Pressure Mean (mm Hg) 79 Source Monitor Position Supine Blood Pressure Location Right Arm History Since Last Visit- (Skip if this is Patient's initial visit) Have you changed medications since your No last visit? Any new allergies or adverse reactions No Had a fall/change in ADL's that may No increase risk of falls Signs or symptoms of abuse and/or No neglect since last visit Have you been in the hospital since your No last visit? Has dressing in place as prescribed Yes Has compression in place as prescribed N/A Has offloadiing in place as prescribed N/A Experienced any changes in pain level or No management Left Footwear Other Footwear (Comment) Right Footwear Other Footwear (Comment) Other Footwear socks Pain Scale: 0-10 Numeric Is Patient Pain Free? Yes - Nurse 1 - General Ulcer Measurement Start: 05/04/21 13:54 Freq: Status: Active Protocol: Activity Type Activity Date Activity User E-Sign Co-Sign Detail Recorded Client Recorded Date Recorded By Document 05/04/21 13:54 MW [id number] 05/04/21 14:08 MW 05/04/21 13:54 Wound Center Nurse 1 #2 L Buttocks -Combined with other wound No -Current Size (cm) - Length 2.0 -Current Size (cm) - Width 2.3 -Current Size (cm) - Depth 0.5 -Total Square Cm 4.60 -Photo Taken No -Epithelialization Small 1-33% -Tunneling No -Undermining/Tunneling No -Circular Undermining No -Exudate Amt Medium -Exudate Type Serosanguineous -Wound Margin Flat & Intact -Granulation Amt Large (67-100%) -Granulation Quality Red -Slough/Fibrin No -Necrosis Amt None Present (0 %) -Structure Exposed N/A -Texture (Ana Lilia-wound Skin Appearance) Assessed, Scarring -Moisture (Ana Lilia-wound Skin Appearance) No Abnormality, Assessed -Color (Ana Lilia-wound Skin Appearance) No Abnormality, Assessed -Temperature (Ana Lilia-wound Skin No Abnormality Appearance) (Pt Warm) -Tenderness on Palpation (Ana Lilia-wound Yes Skin Appearance) -Ulcer Cleansing soap and water -Foul Odor after Cleansing No -Anesthetic Used 5% Lidocaine Gel #1 sacral -Combined with other wound No -Current Size (cm) - Length 2.7 -Current Size (cm) - Width 2.0 -Current Size (cm) - Depth 0.3 -Total Square Cm 5.40 -Photo Taken No -Epithelialization Small 1-33% -Tunneling No -Undermining/Tunneling No -Circular Undermining No -Exudate Amt Medium -Exudate Type Serosanguineous -Wound Margin Flat & Intact -Granulation Amt Large (67-100%) -Granulation Quality Red -Slough/Fibrin No -Necrosis Amt None Present (0 %) -Structure Exposed N/A -Texture (Ana Lilia-wound Skin Appearance) Assessed, Scarring -Moisture (Ana Lilia-wound Skin Appearance) No Abnormality, Assessed -Color (Ana Lilia-wound Skin Appearance) No Abnormality, Assessed -Temperature (Ana Lilia-wound Skin No Abnormality Appearance) (Pt Warm) -Ulcer Cleansing soap and water -Foul Odor after Cleansing No -Anesthetic Used 5% Lidocaine Gel Lower Limb Edema Present No WC - Nurse 2 - General Ulcer CM Notes Start: 05/04/21 13:54 Freq: Status: Active Protocol: Activity Type Activity Date Activity User E-Sign Co-Sign Detail Recorded Client Recorded Date Recorded By Document 05/04/21 16:29 PL [id number] 05/04/21 16:33 PL 05/04/21 16:29 Wound Center Nurse 2 #2 L Buttocks -Time 14:40 -Correct Patient Yes -Correct Side, Site, Position Yes -Correct Procedure Yes -Procedure Performed Yes -Type of Procedure Debridement -Clinical Debridement Subcutaneous -Tissue Removed Subcutaneous -Post Debridement (cm) - Length 2.2 -Post Debridement (cm) - Width 3.0 -Post Debridement (cm) - Depth 0.4 -Total Square (Post) (cm) 6.60 -Area of Debridement (cm) - Length 2.2 -Area of Debridement (cm) - Width 3.0 -Total Square (Area) (cm) 6.60 -Tunneling No -Undermining/Tunneling Yes -Undermining/Tunneling Starts (O'clock 3 ) -Undermining/Tunneling Ends (O'clock) 7 -Maximum Distance (cm) 1.0 -Circular Undermining No -Wound/Ulcer Outcome Not Healed -Ulcer Cleansing Rinsed/ Irrigated with Saline -Foul Odor after Cleansing No -Bioengineered Tissue No -Bleeding Controlled with NA -Treatment Response Procedure Tolerated Well -Debridement - Subq, 1st 20sq cm Yes #1 sacral -Time 14:40 -Correct Patient Yes -Correct Side, Site, Position Yes -Procedure Performed Yes -Type of Procedure Debridement -Clinical Debridement Subcutaneous -Tissue Removed Subcutaneous -Post Debridement (cm) - Length 3.0 -Post Debridement (cm) - Width 2.5 -Post Debridement (cm) - Depth 0.4 -Total Square (Post) (cm) 7.50 -Area of Debridement (cm) - Length 3.0 -Area of Debridement (cm) - Width 2.5 -Total Square (Area) (cm) 7.50 -Tunneling No -Undermining/Tunneling No -Circular Undermining No -Wound/Ulcer Outcome Not Healed -Ulcer Cleansing Rinsed/ Irrigated with Saline -Foul Odor after Cleansing No -Bioengineered Tissue No -Debridement - Subq, 1st 20sq cm No Pain Scale: 0-10 Numeric Is Patient Pain Free? Yes Wound debrided: Stage IV pressure injury to left buttock and sacral region Type of Debridement: Excisional debridement Anesthesia Used: 5% Lidocaine Gel Depth: in the subcutaneous layer Percentage of wound debrided: 100 Instrument Used: 5mm curette Tissue Removed: Slough and devitalized tissue Severity: Fat Layer Exposed Amount of bleeding with debridement: Mild Bleeding Controlled with: Pressure Patient tolerated procedure: Patient tolerated procedure well Assessment/Plan Assessment/Plan (1) Pressure injury of sacral region, stage 4: CODE(S): L89.154 - Pressure ulcer of sacral region, stage 4 (2) Pressure injury of left buttock, stage 4: CODE(S): L89.324 - Pressure ulcer of left buttock, stage 4 (3) Malnutrition: CODE(S): E46 - Unspecified protein-calorie malnutrition (4) Muscular dystrophy: CODE(S): G71.00 - Muscular dystrophy, unspecified (5) Tracheostomy in place: CODE(S): Z93.0 - Tracheostomy status (6) Chronic respiratory failure: CODE(S): J96.10 - Chronic respiratory failure, unspecified whether with hypoxia or hypercapnia (7) Colostomy in place: CODE(S): Z93.3 - Colostomy status PLAN: The patient was seen and examined at the wound center today and was updated on the plan of care. A subcutaneous/muscular debridement was performed today. The patient tolerated the procedure well. The patients wound care will consist of: Utilizing moistened silver cell change daily cover with gauze and ABD for offloading. Patient's father is having difficulty with wound care at home, given the chronicity and multiple comorbidities of this patient a palliative wound consult was ordered to assist with home nursing care. Patient educated on the importance of diet on wound healing and instructed to increase protein and vitamin C intake. Patient verbalized understanding. Patient will follow up at wound healing center in 4 weeks per palliative wound care or sooner if needed. This note was generated with [employer] software. It may contain incorrect words, spelling, and punctuation that were not noted in checking the note before signing.
== END 2021-05-17 23:59 ==
LOC: WC 14:00
PROVIDERS: PCP Family Medicine; Visit Provider Nurse Practitioner Family
DX: L89.154 Pressure ulcer of sacral region, stage 4 (principal); L89.324 Pressure ulcer of left buttock, stage 4; Z74.01 Bed confinement status; Z93.0 Tracheostomy status; Z99.3 Dependence on wheelchair; G71.00 Muscular dystrophy, unspecified; E46 Unspecified protein-calorie malnutrition; Z68.1 Body mass index [BMI] 19.9 or less, adult; J96.10 Chronic respiratory failure, unspecified whether with hypoxia or hypercapnia; Z93.3 Colostomy status
CPT/HCPCS: 11042; 99213; G0463

== ENCOUNTER 2021-06-29 15:03 | Outpatient (RCR) | payer MEDICAID, SELFPAY ==
[2021-05-18 00:05] VITALS: BP 112/63; PULSE 113; RESP 18; TEMP 36.7
[2021-06-19 12:20] VITALS: BMI 18.1
[2021-06-29 15:17] VITALS: BP 126/84; PULSE 96; RESP 16; TEMP 36.2; BMI 18.1
--- NOTE | 2021-06-29 23:19 | PN.PCM_ITS ---
History of Present Illness Date of Service: 06/29/21 Chief Complaint: stage four pressure injuries to sacrum and buttock History of Wound: This is a 25-year-old male who presents to the wound healing center today with stage IV pressure injuries to his sacrum and left buttock. He has with his father today. The patient is wheelchair-bound/bedbound and has a tracheostomy in place and has a history of severe muscular dystrophy, debility, and prior myocutaneous flap repair to sacral pressure ulcer. Patient is not verbal during today's office visit and from information gathered from the father the wounds have been present for greater than 6 months now. The patient underwent surgery in March 2020 to have his myocutaneous flap to close the sacral pressure ulcer. Afterwards per report of father he was hospitalized for pneumonia and developed another pressure injury to his left buttock. He was last seen by wound care in June 2020 and was placed on a wound VAC. The patient did not follow-up with wound care afterwards but did have home care nursing coming out 3 times a week. The father states that the wound VAC was discontinued a couple weeks ago. Since then they have been using an alginate dressing packed and changed daily. Denies any systemic or local signs of infection at this time. Denies any other acute concerns. Past medical, family, and social history reviewed and not pertinent to the current visit and all other systems reviewed and negative with exception of those listed above. Progress of Wound: No new signs of infection, father does state that there is more undermining present on the left buttock pressure injury, otherwise no new concerns. He did have a palliative/hospice consult for his severe debility, muscular dystrophy, malnutrition and father states that they told him that he was not appropriate for further care. We will request records for continuity of care. Objective Data Objective Data Vital Signs: Vital Signs Temp Pulse Resp BP 97.1 F L 96 16 126/84 H 06/29/21 15:17 06/29/21 15:17 06/29/21 15:17 06/29/21 15:17 Oxygen Flow Rate (L/min) 4 Weight: 98 lb Body Mass Index (BMI) 18.1 Charges/Coding Procedures Integumentary [id number]: [id number] Katina subq tissue 20 sq cm/< Physical Exam Const alert; Negative for oriented x3 Nutritional Appearance: cachectic HEENT Head and Scalp: atraumatic Resp Resp Narrative: Tracheostomy in place Cardio regular rate GI GI Narrative: Colostomy Skin Wound Narrative: See nursing documentation, stage IV pressure injury to sacrum and left buttock with adherent slough, bone is no longer exposed. Significant undermining present to left buttock pressure injury from 6 PM to 9 PM, otherwise no purulent drainage or signs of obvious infection at this time Psych Psych Narrative: Unable to assess Debridement Note Debridement Note Post-Debridement Measurements and Additional Note: Post-Debridement Measurements/Treatment - Nurse 1 - General Ulcer Assessment Start: 06/29/21 15:14 Freq: Status: Active Protocol: DORI Activity Type Activity Date Activity User E-Sign Co-Sign Detail Recorded Client Recorded Date Recorded By Document 06/29/21 15:17 DL [id number] 06/29/21 15:28 DL 06/29/21 15:17 WC - Today's Visit Information Type of service Follow-up Visit (Physician/M[employer] CANDLES WICKER ) Arrival Mode Stretcher Transfer Assistance None Patient Identification Verified (Name & Yes ) Patient Requires Transmission-Based No Precautions Height and Weight Body Mass Index (BMI) 18.1 BMI Classification Underweight Vital Signs Temperature (97.8 F-99.1 F) 97.1 F L Temperature Source Temporal Pulse Rate (60-100) 96 Pulse Location Monitor Respiratory Rate (12-18) 16 Respiratory rate source Observation Blood Pressure (90/60-120/80) 126/84 H Blood Pressure Mean (mm Hg) 98 Source Monitor History Since Last Visit- (Skip if this is Patient's initial visit) Have you changed medications since your No last visit? Any new allergies or adverse reactions No Had a fall/change in ADL's that may No increase risk of falls Signs or symptoms of abuse and/or No neglect since last visit Have you been in the hospital since your No last visit? Has dressing in place as prescribed Yes Has compression in place as prescribed N/A Has offloadiing in place as prescribed Yes Experienced any changes in pain level or No management Pain Scale: 0-10 Numeric Is Patient Pain Free? Yes [facility] Nurse 1 - General Ulcer Measurement Start: 06/29/21 15:14 Freq: Status: Active Protocol: Activity Type Activity Date Activity User E-Sign Co-Sign Detail Recorded Client Recorded Date Recorded By Document 06/29/21 15:17 DL [id number] 06/29/21 15:28 DL 08/12/21 15:17 Wound Center Nurse 1 #2 L Buttocks -Current Size (cm) - Length 2.8 -Current Size (cm) - Width 1.5 -Current Size (cm) - Depth 0.8 -Total Square Cm 4.20 -Photo Taken Yes -Maximum Distance #2 (cm) 4.4 -Circular Undermining Yes -Exudate Amt Small -Exudate Type Serosanguineous -Wound Margin Distinct, Outline Attached -Granulation Amt Large (67-100%) -Granulation Quality Red -Necrosis Amt Small (1-33%) -Necrotic Tissue Type Adherent Slough -Structure Exposed N/A -Texture (Ana Lilia-wound Skin Appearance) Scarring -Moisture (Ana Lilia-wound Skin Appearance) No Abnormality -Color (Ana Lilia-wound Skin Appearance) No Abnormality -Temperature (Ana Lilia-wound Skin No Abnormality Appearance) (Pt Warm) -Tenderness on Palpation (Ana Lilia-wound No Skin Appearance) -Ulcer Cleansing Wound Cleanser -Foul Odor after Cleansing No -Anesthetic Used 4% Lidocaine Solution #1 sacral -Current Size (cm) - Length 1.9 -Current Size (cm) - Width 1.1 -Current Size (cm) - Depth 0.7 -Total Square Cm 2.09 -Photo Taken No -Maximum Distance #2 (cm) 0.9 -Circular Undermining Yes -Exudate Amt Small -Exudate Type Serosanguineous -Wound Margin Distinct, Outline Attached -Granulation Amt Large (67-100%) -Necrosis Amt Small (1-33%) -Necrotic Tissue Type Adherent Slough -Structure Exposed N/A -Texture (Ana Lilia-wound Skin Appearance) Scarring -Moisture (Ana Lilia-wound Skin Appearance) No Abnormality -Color (Ana Lilia-wound Skin Appearance) No Abnormality -Temperature (Ana Lilia-wound Skin No Abnormality Appearance) (Pt Warm) -Tenderness on Palpation (Ana Lilia-wound No Skin Appearance) -Ulcer Cleansing Wound Cleanser -Foul Odor after Cleansing No -Anesthetic Used 4% Lidocaine Solution WC - Nurse 2 - General Ulcer CM Notes Start: 06/29/21 15:14 Freq: Status: Active Protocol: Activity Type Activity Date Activity User E-Sign Co-Sign Detail Recorded Client Recorded Date Recorded By Document 06/29/21 15:45 MW [id number] 06/29/21 15:52 MW Edit Result 06/29/21 15:45 MW (1) [id number] 06/30/21 07:08 PL (1) #1 sacral - Debridement - Subq, 1st 20sq cm Yes => No 06/29/21 15:45 Wound Center Nurse 2 #2 L Buttocks -Time 15:47 -Correct Patient Yes -Correct Side, Site, Position Yes -Correct Procedure Yes -Procedure Performed Yes -Type of Procedure Debridement -Clinical Debridement Subcutaneous -Tissue Removed Subcutaneous -Post Debridement (cm) - Length 2.5 -Post Debridement (cm) - Width 2.0 -Post Debridement (cm) - Depth 1.0 -Total Square (Post) (cm) 5.00 -Area of Debridement (cm) - Length 2.5 -Area of Debridement (cm) - Width 2.0 -Total Square (Area) (cm) 5.00 -Tunneling No -Undermining/Tunneling Yes -Undermining/Tunneling Starts (O'clock 6 ) -Undermining/Tunneling Ends (O'clock) 9 -Maximum Distance (cm) 6.0 -Circular Undermining No -Wound/Ulcer Outcome Not Healed -Ulcer Cleansing Rinsed/ Irrigated with Saline -Foul Odor after Cleansing No -Bioengineered Tissue No -Bleeding Controlled with Pressure -Offloading No -Treatment Response Procedure Tolerated Well -Debridement - Subq, 1st 20sq cm Yes #1 sacral -Time 15:47 -Correct Patient Yes -Correct Side, Site, Position Yes -Correct Procedure Yes -Procedure Performed Yes -Type of Procedure Debridement -Clinical Debridement Subcutaneous -Tissue Removed Subcutaneous -Post Debridement (cm) - Length 2.5 -Post Debridement (cm) - Width 1.5 -Post Debridement (cm) - Depth 0.8 -Total Square (Post) (cm) 3.75 -Area of Debridement (cm) - Length 2.5 -Area of Debridement (cm) - Width 1.5 -Total Square (Area) (cm) 3.75 -Tunneling No -Undermining/Tunneling No -Circular Undermining No -Wound/Ulcer Outcome Not Healed -Ulcer Cleansing Rinsed/ Irrigated with Saline -Foul Odor after Cleansing No -Bioengineered Tissue No -Bleeding Controlled with Pressure -Offloading No -Treatment Response Procedure Tolerated Well -Debridement - Subq, 1st 20sq cm No Pain Scale: 0-10 Numeric Is Patient Pain Free? Yes WC - Nurse 3 - General Ulcer D/C NN Start: 06/29/21 15:14 Freq: Status: Active Protocol: Activity Type Activity Date Activity User E-Sign Co-Sign Detail Recorded Client Recorded Date Recorded By Document 06/29/21 15:59 SHAJI [id number] 06/29/21 16:01 SHAJI 06/29/21 15:59 Wound Care Nurse 3 #2 L Buttocks -Ulcer Cleansing Rinsed/ Irrigated with Saline -Foul Odor after Cleansing No -Mepilex Border 1 -Silvercel 1 #1 sacral -Ulcer Cleansing Rinsed/ Irrigated with Saline -Foul Odor after Cleansing No -Primary Dressing Applied Silvercel -Mepilex Border 0 -Silvercel 0 WC - Visit Discharge Discharge Condition Stable Ambulatory Status Stretcher Transportation Ambulance Accompanied by dad Clinical Summary of Care Provided Yes Assessment/Plan Assessment/Plan (1) Pressure injury of sacral region, stage 4: CODE(S): L89.154 - Pressure ulcer of sacral region, stage 4 (2) Pressure injury of left buttock, stage 4: CODE(S): L89.324 - Pressure ulcer of left buttock, stage 4 (3) Malnutrition: CODE(S): E46 - Unspecified protein-calorie malnutrition (4) Muscular dystrophy: CODE(S): G71.00 - Muscular dystrophy, unspecified (5) Tracheostomy in place: CODE(S): Z93.0 - Tracheostomy status (6) Chronic respiratory failure: CODE(S): J96.10 - Chronic respiratory failure, unspecified whether with hypoxia or hypercapnia (7) Colostomy in place: CODE(S): Z93.3 - Colostomy status PLAN: The patient was seen and examined at the wound center today and was updated on the plan of care. A subcutaneous/muscular debridement was performed today. The patient tolerated the procedure well. The patients wound care will consist of: Utilizing moistened silver cell change daily cover with [place]is SAP foam dressing or ABD for offloading. Patient's father is having difficulty with wound care at home, given the chronicity and multiple comorbidities including severe muscular dystrophy, malnutrition, and debility, a palliative/hospice consult was ordered prior. Patient currently only receives home health 3 times per week.. Patient educated on the importance of diet on wound healing and instructed to increase protein and vitamin C intake. Patient verbalized understanding. Patient will follow up at wound healing center in 4 weeks per palliative wound care or sooner if needed. This note was generated with [employer] dictation software. It may contain incorrect words, spelling, and punctuation that were not noted in checking the note before signing.
== END 2021-07-18 23:59 ==
LOC: WC 15:03
PROVIDERS: PCP Family Medicine; Visit Provider Nurse Practitioner Family
DX: L89.154 Pressure ulcer of sacral region, stage 4 (principal); L89.324 Pressure ulcer of left buttock, stage 4; Z93.0 Tracheostomy status; Z74.01 Bed confinement status; Z99.3 Dependence on wheelchair; G71.00 Muscular dystrophy, unspecified; J96.10 Chronic respiratory failure, unspecified whether with hypoxia or hypercapnia; Z93.3 Colostomy status
CPT/HCPCS: 11042

== ENCOUNTER 2021-12-25 02:59 | Emergency (ER) | payer MEDICARE, MEDICAID, SELFPAY ==
[2021-12-25 03:01] VITALS: BP 115/92; PULSE 112; RESP 18; TEMP 36.6; O2SAT 100; BMI 16.2
--- NOTE | 2021-12-25 04:10 | RAD_ITS ---
STUDY: X-RAY - ABDOMEN/PELVIS REASON FOR EXAM: Male, 26 years old. PEG tube placement TECHNIQUE: AP supine abdomen. 25 mL Gastrografin and 25 mL water were injected through the PEG tube. COMPARISON: None. FINDINGS: The lung bases well aerated. Density at the left lung base. A catheter containing contrast is present in the left upper quadrant. A PEG tube bulb is not appreciated. The tip of the catheter is in the region of the gastric body. Contrast within the gastric fundus and nondilated loops of proximal small bowel. Round density left lower quadrant of uncertain clinical significance. There is an unremarkable bowel gas pattern. There is no demonstrated free abdominal air. The visualized liver, spleen and kidneys are grossly normal in size and morphology. Normal soft tissue structures. Normal visualized osseous structures. RAD/Abdomen Single View (Portable) IMPRESSION: Catheter tip in the region of the gastric body. The inflated PEG tube bulb is not appreciated. Round density left lower quadrant. Correlate with clinical exam. Left lower lobe density. Consider correlation with chest x-ray. Electronically Signed: Silvino Leach MD at 4:50 EST Reading Location ID and State: [id number] / , Service support ,
--- NOTE | 2021-12-25 05:15 | EDS_ITS ---
HPI History of Present Illness Chief Complaint: Wound Narrative Narrative: Patient is a 26-year-old male with past medical history of muscular dystrophy as well as chronic respiratory failure requiring tracheostomy PEG tube and colostomy. Parents state that his PEG tube was accidentally removed a few hours ago and they do not have any type of replacement. They state that he gets all of his nutrients through the PEG tube and therefore requires this to be replaced. He also states that the patient's not had his trach changed since August and they were advised that should have been done multiple months ago. They state he has had no troubles breathing but since he is here that there is a possibility that his trach tube could be changed while in the ER. [facility] Medical History (Updated 12/25/21 @ 05:[address] Higinio Melchor DO) Anoxic encephalopathy Home Medications famotidine 20 mg G-TUBE DAILY 11/03/20 [History Last Taken 01/30/21] metoprolol tartrate 25 mg G-TUBE TID 11/03/20 [History Last Taken 01/30/21] levetiracetam 100 mg G-TUBE BID 11/16/20 [History Last Taken 01/30/21] chlorhexidine gluconate 473 ml MM DAILY 01/23/21 [History Last Taken Unknown] ipratropium-albuterol 3 ml INHALATION Q6H.RT 01/23/21 [History Last Taken 01/30/21] Allergy/AdvReac Type Severity Reaction Status Date / Time No Known Allergies Allergy Verified 12/25/21 03:11 Social History Smoking Status: Never smoker ROS ROS ED Review of Systems ROS Unobtainable: other Details: Patient cannot provide any review of systems as he is mute however parents report below Constitutional Constitutional ED: Denies fever(s) ENT ENT ED: Denies rhinorrhea Respiratory/Chest Respiratory/Chest: Reports cough Integumentary Denies rash EXAM Physical Exam Const Vital Signs: 12/25/21 03:01 12/25/21 05:31 Temperature 98 F Temperature Source Temporal Pulse Rate 112 H 113 H Respiratory Rate 18 16 Blood Pressure 115/92 H 109/85 H Blood Pressure Mean 99 Pulse Ox 100 100 Oxygen Delivery Method Mechanical Ventilator Positive well nourished and contractures General Appearance ED: contractures Eyes PERRL Neck Neck Narrative: There is a tracheostomy tube in place without surrounding sec ondary changes to suggest infection and no crepitance palpated Chest Wall palpation of chest normal Resp Resp Narrative: Breath sounds are diminished throughout with faint rhonchi in the bilateral lower lobes with no signs of respiratory distress Cardio regular rhythm Rate: tachycardic and other Other Details: Radial is are +2-4 bilaterally are equal and symmetric GI non-distended and no masses GI Narrative: Patient has a colostomy in place in the left lower quadrant that is draining brown stool. There is a PEG tube opening present in the left upper quadrant without surrounding secondary skin changes to suggest infection. Auscultation: normoactive bowel sounds Palpation: soft Extremity Extremity Narrative: Patient has chronic contracture secondary to his muscular dystrophy Neuro Neuro Narrative: Patient is at his baseline mental status with chronic neurologic deficits from his anoxic brain injury but no new/acute findings Psych Psych Narrative: Patient is at his baseline mental status per parents Skin no rashes or lesions noted MDM MDM MDM Narrative Medical decision making narrative: Patient presented to the ER afebrile and in no acute respiratory distress. His PEG tube had been inadvertently removed a few hours ago and family states that the PEG has been in place for almost 2 years. Therefore it was replaced as documented below. The family had also requested a trach change as they did not feel comfortable performing it at home and it has been months overdue. I did attempt this but despite deflating the cuff the trach was very hard to withdraw indicating stricture or scar tissue formation. I did attempt to remove the trach 4-5 times with the same result of scar tissue/stricture preventing me from doing so. The patient did develop a little bit of bleeding with this which family states is normal with any type of trach change for him. However he then began to desat indicating he had developed a mucous plug and at that time had to be bagged and suction provided. After doing this patient was placed back on his normal oxygen and his pulse ox remained in the high 90s to 100% range. Therefore at this time the patient's PEG tube has been replaced which is confirmed by KUB his trach is in place and functioning properly. The radiologist did mention a mass in the left lower quadrant consistent with his colostomy and therefore does not need to be further evaluated. Also as the patient is afebrile and satting 100% on his normal oxygen I do not feel there is need for chest x-ray. Patient will be discharged home at this time and family advised to follow-up with ENT to discuss trach tube change in the hospital Patient had the abdomen cleaned with chlorhexidine then sterile K-Y jelly was placed over top the PEG tube opening. A 20 Chinese PEG tube was then inserted with manual pressure without difficulty into the abdomen. Confirmation was by x-ray/KUB with Gastrografin. Patient tolerated procedure well without complication Radiography Diagnostic Testing: Clinical Impression(s) from Imaging Studies KUB X-Ray 12/25/21 04:10 IMPRESSION: Catheter tip in the region of the gastric body. The inflated PEG tube bulb is not appreciated. Round density left lower quadrant. Correlate with clinical exam. Left lower lobe density. Consider correlation with chest x-ray. Electronically Signed: Silvino Leach MD at 4:50 EST Reading Location ID and State: [id number] / , Service support , Discharge Plan Triage Chief Complaint: Wound ED Provider: Higinio Melchor Dx/Rx/DC Orders Clinical Impression: PEG tube malfunction Instructions: Gastrostomy Feeding Tube Care ..., ED Feeding Tube Replacement Prescriptions: No Action famotidine 20 MG tablet 20 mg G-tube DAILY RF: 0 metoprolol tartrate 25 MG tablet 25 mg G-tube TID RF: 0 levetiracetam 100 MG/ML solution 100 mg G-tube BID RF: 0 chlorhexidine gluconate 473 ML mouthwash 473 ml MM DAILY RF: 0 ipratropium-albuterol 3 ML solution for nebulization 3 ml INHALATION Q6H.RT RF: 0 Primary Care Provider: Angus Perez Referrals: Angus Perez MD [Primary Care Provider] - Activity Restrictions/Additional Instructions: Please talk to your doctor about a trach change by the specialist done in the hospital secondary to the prolonged timeframe in between trach changes and the high chance of respiratory distress if complications arise Disposition Disposition: Home, Self Care
[2021-12-25 05:31] VITALS: BP 109/85; PULSE 113; RESP 16; O2SAT 100
== END 2021-12-25 06:37 | disposition home or self-care (01) ==
PROVIDERS: Emergency Provider Emergency Medicine; PCP Family Medicine; Visit Provider Emergency Medicine
DX: K94.23 Gastrostomy malfunction (principal); Z93.0 Tracheostomy status; Z93.3 Colostomy status; G71.00 Muscular dystrophy, unspecified; J96.10 Chronic respiratory failure, unspecified whether with hypoxia or hypercapnia; Z79.899 Other long term (current) drug therapy
CPT/HCPCS: 43762; 31720; 74018; 99284

== ENCOUNTER 2022-02-19 10:09 | Day surgery (SDC) | payer MEDICARE, MEDICAID, SELFPAY ==
[2022-02-19 10:29] VITALS: BP 107/81; PULSE 125; RESP 14; TEMP 36.7; O2SAT 100; BMI 17.6
--- NOTE | 2022-02-19 10:35 | PCM.DC.SUM ---
Providers Primary Care Physician: Dr. Angus Perez MD Reason For Visit: TRACH CHANGE Medications at Discharge Home Medications famotidine 20 mg G-TUBE DAILY 11/03/20 metoprolol tartrate 25 mg G-TUBE TID 11/03/20 levetiracetam [Keppra] 100 mg G-TUBE BID 11/16/20 chlorhexidine gluconate 473 ml MM DAILY 01/23/21 ipratropium-albuterol 3 ml INHALATION Q6H.RT 01/23/21 Weight / BMI Weight Weight: 45.359 kg Body Mass Index (BMI) 17.6 D/C Instructions Discharge Diet: - Additional Activity Instructions: continue regular trach care Additional Dressing/Incision Instructions: suction trach tube as needed Meaningful Use Info Meaningful Use Diagnoses (Choose all that apply): None applicable Discharge Plan Admission Attending Provider: Antonio Thorne Primary Care Provider: Angus Perez Discharge Orders/Prescriptions Prescriptions: No Action famotidine 20 MG tablet 20 mg G-tube DAILY RF: 0 metoprolol tartrate 25 MG tablet 25 mg G-tube TID RF: 0 levetiracetam [Keppra] 100 MG/ML solution 100 mg G-tube BID RF: 0 chlorhexidine gluconate 473 ML mouthwash 473 ml MM DAILY RF: 0 ipratropium-albuterol 3 ML solution for nebulization 3 ml INHALATION Q6H.RT RF: 0
--- NOTE | 2022-02-19 10:56 | PCM.OPRPT ---
Report of Operation Date of Procedure: 02/19/22 Pre-Operative Diagnosis: respiratory failure Post-Operative Diagnosis: same Surgery/Procedure Performed:: tracheotomy tube change Surgeon: Antonio Thorne Type of Anesthesia: None Estimated Blood Loss (mL): <1 cc Description of Procedure: The patient was brought to the operating room on 02/19/2022. He was left on the operating room cart. The old tracheotomy tube cuff was deflated and the tube was removed. A new #8 DCT tracheotomy tube was placed without difficulty. The inner cannula was placed and he was hooked back up to his ventilator. The cuff was inflated. Next, I passed a suction catheter through the tracheotomy tube. This passed easily without any bloody secretions in the suction. A new trach tie was then placed. The patient was removed from the operating room brought to the holding area in stable condition. Blood loss less than 1 cc.
[2022-02-19 11:07] VITALS: BP 107/64; BP 107/81; PULSE 95; RESP 12; TEMP 36.9; O2SAT 97
== END 2022-02-19 11:13 | disposition home or self-care (01) ==
LOC: SDC 10:10 → AC 10:11
PROVIDERS: PCP Family Medicine; Visit Provider Otolaryngology
PROC: (CPT 31502; principal; 2022-02-19 09:40)
DX: J96.90 Respiratory failure, unspecified, unspecified whether with hypoxia or hypercapnia (principal); Z43.0 Encounter for attention to tracheostomy
CPT/HCPCS: 31502

== ENCOUNTER 2025-01-31 17:32 | Emergency (ER) | payer MEDICARE, MEDICAID, SELFPAY ==
[2025-01-31] VITALS (8 sets, daily range): BP systolic 75–92; BP diastolic 60–67; PULSE 103–116; RESP 14–22; TEMP 36.5–36.6; O2SAT 99–100
--- NOTE | 2025-01-31 18:05 | EX.ED.DYSGE1 ---
HPI <SERGEY Marinelli - Last Filed: 01/31/25 20:10> History of Present Illness Chief Complaint: Shortness of Breath Narrative Narrative: Patient is a 29-year-old male with history of anoxic brain injury, muscle dystrophy, seizures, who has been trached on a vent for 5 years presenting to the emergency department with his parents who are the main caregiver. Per the mother and dad, over the last couple nights, the patient's been harder to suction. On the way up here, the patient was easier to suction, they are concerned for a blockage. Patient has had no fevers or chills. The mother states that the patient has been taking bigger breaths than usual. Here for evaluation PFSH <SERGEY Marinelli - Last Filed: 01/31/25 20:10> [facility] Medical History (Updated 01/31/25 @ 20:06 by SERGEY Marinelli) Pressure ulcer Gilman catheter in place Colostomy in place Muscular dystrophy Seizures Gastric reflux Non-smoker On home oxygen therapy Ventilator dependent History of irregular heartbeat History of non-healing wound History of wound infection Anoxic encephalopathy Home Medications ?Medication ?Instructions ?Recorded ?Last Taken ?Type famotidine 20 mg tablet 20 mg G-tube PRN GERD 11/03/20 01/30/21 History metoprolol tartrate 25 mg tablet 25 mg G-tube TID PRN 11/03/20 02/19/22 History levetiracetam 100 mg/mL oral 250 mg G-tube BID seizures 11/16/20 01/30/21 History solution (Keppra) ipratropium 0.5 mg-albuterol 3 mg 3 ml inhalation Q6H.RT breathing 01/23/21 01/30/21 History (2.5 mg base)/3 mL nebulization soln Allergy/AdvReac Type Severity Reaction Status Date / Time No Known Allergies Allergy Verified 02/19/22 10:29 Surgical History S/P bronchoscopy Hx of surgical procedure Hx of tracheostomy Social History Smoking Status: Never smoker ROS <SERGEY Marinelli - Last Filed: 01/31/25 20:10> ROS ED ROS Narrative Secondary to the patient's condition, patient is nonverbal. Cannot obtain and review of symptoms EXAM <SERGEY Marinelli - Last Filed: 01/31/25 20:10> Physical Exam Narrative Exam Narrative: Vital signs reviewed. Patient's heart rate is 110 bpm, patient is currently on his vent on his normal settings, oxygen saturation is 98 to 99%. HEET: Head normocephalic atraumatic, TMs clear bilaterally. Posterior pharynx is clear, moist mucous membranes. Nares clear bilaterally. Neck: Supple with no lymphadenopathy or tenderness. No signs of meningismus. Cardiac: Regular rate and rhythm no murmurs gallops or rubs, equal peripheral pulses bilaterally. Respiratory: Lungs clear to auscultation bilaterally airflow bilateral however there is some rhonchorous breath sounds midline however no wheezes. No chest tenderness. Abdomen: Soft, nontender, nondistended. No abdominal bruit or pulsatile masses. No hepatosplenomegaly Extremities: No peripheral edema, no signs of gross trauma or deformity. Active full range of motion of all extremities. Neuro: Cranial nerves II through XII intact, no focal neurological deficits. Skin: Clean dry and intact with no rash, purpura, petechiae, vesicles or pustules. Backs/flank: No CVA tenderness, no midline spinal tenderness, no deformity. Psych: Normal mood and affect. No SI, HI or acute psychosis. Const Vital Signs: 01/31/25 17:34 01/31/25 17:38 01/31/25 17:39 Temperature 97.7 F L 97.7 F L Temperature Source Temporal Temporal Pulse Rate 114 H 109 H Respiratory Rate 15 16 Respiratory Effort Normal Respiratory Depth Normal Respiratory Pattern Normal Blood Pressure 75/60 L 81/62 L Blood Pressure Mean 65 68 Pulse Ox 99 99 Oxygen Delivery Method Room Air Trach Collar Trach Collar Oxygen Flow Rate (L/min) 01/31/25 18:00 01/31/25 18:59 01/31/25 19:00 Temperature Temperature Source Pulse Rate 111 H 116 H Respiratory Rate 22 H 22 H Respiratory Effort Respiratory Depth Respiratory Pattern Blood Pressure 82/62 L 87/63 L Blood Pressure Mean 68 71 Pulse Ox 99 99 99 Oxygen Delivery Method Mechanical Ventilator Mechanical Ventilator Mechanical Ventilator Oxygen Flow Rate (L/min) 4 <Dr. Jesus Taylor MD - Last Filed: 01/31/25 18:35> Physical Exam Const Vital Signs: 01/31/25 17:34 01/31/25 17:38 01/31/25 17:39 Temperature 97.7 F L 97.7 F L Temperature Source Temporal Temporal Pulse Rate 114 H 109 H Respiratory Rate 15 16 Respiratory Effort Normal Respiratory Depth Normal Respiratory Pattern Normal Blood Pressure 75/60 L 81/62 L Blood Pressure Mean 65 68 Pulse Ox 99 99 Oxygen Delivery Method Room Air Trach Collar Trach Collar Oxygen Flow Rate (L/min) 01/31/25 18:00 01/31/25 18:59 01/31/25 19:00 Temperature Temperature Source Pulse Rate 111 H 116 H Respiratory Rate 22 H 22 H Respiratory Effort Respiratory Depth Respiratory Pattern Blood Pressure 82/62 L 87/63 L Blood Pressure Mean 68 71 Pulse Ox 99 99 99 Oxygen Delivery Method Mechanical Ventilator Mechanical Ventilator Mechanical Ventilator Oxygen Flow Rate (L/min) 4 MDM <SERGEY Marinelli - Last Filed: 01/31/25 20:10> [facility] Lab Data Labs: Laboratory Results - last 24 hr 01/31/25 18:48 WBC 5.9 RBC 4.78 Hgb 12.5 L Hct 40.3 MCV 84.3 MCH 26.2 L MCHC 31.0 L RDW Std Deviation 58.7 H RDW Coeff of Taylor 19.1 H Plt Count 351 MPV 9.0 Immature Gran % (Auto) 0.300 Neut % (Auto) 67.3 Lymph % (Auto) 16.9 L Lamar % (Auto) 14.3 H Eos % (Auto) 0.5 Baso % (Auto) 0.7 Absolute Neuts (auto) 4.0 Absolute Lymphs (auto) 1.00 Nucleated RBC % 0 Lactic Acid < 1.0 Radiography Diagnostic Testing: Clinical Impression(s) from Imaging Studies Chest X-Ray 01/31/25 18:12 IMPRESSION: No prior imaging available for comparison at this time. Patient is rotated to the left. Tracheostomy tube is in place with balloon measuring approximately 4.4 cm. Mid to lower trachea measures around 2 cm. The right lung overall appears hyperinflated with extension of the lung across the midline and flattening of the diaphragm. The left lung appears small with coarse irregular chronic appearing opacities. A superimposed acute process is difficult to exclude without comparison. Possible left pleural fluid. Patchy ill-defined opacity at the right base may represent developing infiltrate for possible aspiration. Reading Location: [facility] Treatment and Re-Evaluation :: Differential diagnosis includes however is not limited to: Mucous plug, community-acquired pneumonia, tension pneumothorax, COVID-19, influenza, RSV Patient appears generally well, vital signs are stable, patient is nontoxic-appearing. Presenting to the emergency department with parents for concern of difficulty suctioning, concern for a plug or obstruction to the trachea. Patient will receive a chest x-ray, as well as suctioning from the respiratory therapist. Respiratory therapist did mention there is copious amounts of mucus, and a sputum sample was sent. Patient CBC was unremarkable, lactic was negative. Patient's chest x-ray showed no prior imaging available. Patient is rotated left, tracheostomy tube is placed with the balloon measuring approximately 4.4 cm. Mid to lower trachea measures around 2 cm. The right lung overall appears hyperinflated with extension of the lung across the midline and flattening of the diaphragm. Left lung appears small with coarse irregular chronic appearing opacities. A superimposed acute process is difficult to exclude. Patient is heart rate did decrease after IV fluids, patient's blood pressure improved. At this time, there is no evidence of any pneumonia, sepsis, UTI, severe dehydration or electrolyte abnormality. Patient did have deep suctioning done by our respiratory therapist here. My spoke with the parents at length, they do feel comfortable taking the patient home. They will continue following up outpatient. They were given strict return precautions. All questions answered, stable for discharge <Dr. Jesus Taylor MD - Last Filed: 01/31/25 18:35> [facility] MDM Narrative Medical decision making narrative: I have personally performed a face to face assessment of the patient and have reviewed the LISA Note. I performed a substantive portion of the visit including all aspects of the following. My reyes findings include: History is 29-year-old male history of severe muscular dystrophy where he is unable to walk or communicate. Has a indwelling tracheostomy tube, feeding tube and colostomy. He has a chronic Gilman catheter. Initially brought in today because family was having difficulty suctioning his tracheostomy. That is all they wanted checked initially. However I explained to them his blood pressure was also in the 80s this is not his baseline according to them where he normally has a blood pressure of 110. So organ to start further evaluation. Exam is [29-year-old male lying in bed. Flaccid. Eyes open. Pupils round reactive light. Extra motions are intact. Dry mucous membranes. Neck nontender. Tracheostomy in place. Lungs clear to auscultation bilaterally. Heart tachycardic 110 no murmur. Chest wall and ribs nontender. Abdomen soft nondistended no peritoneal signs. He has a feeding tube left upper quadrant the skin around it is irritated from leakage around the tube. He also has a colostomy. Currently really no significant stool in that. He has not Gilman catheter. Extremities are flaccid. Neurologically his eyes are open. But he is unable to communicate or follow commands.] Medical Decision Making [29-year-old male with hypotension. Infectious workup will be pursued.] Other additions or changes: [None] History & Record Review Discussion w/independent historian: Patient and Family Additional record(s) reviewed:: Prior inpatient record, Prior outpatient record, Prior ED visit, Prior labs and No prior records Lab Data Attestation: I reviewed the patient's lab results. Labs: Laboratory Results - last 24 hr 01/31/25 18:48 WBC 5.9 RBC 4.78 Hgb 12.5 L Hct 40.3 MCV 84.3 MCH 26.2 L MCHC 31.0 L RDW Std Deviation 58.7 H RDW Coeff of Taylor 19.1 H Plt Count 351 MPV 9.0 Immature Gran % (Auto) 0.300 Neut % (Auto) 67.3 Lymph % (Auto) 16.9 L Lamar % (Auto) 14.3 H Eos % (Auto) 0.5 Baso % (Auto) 0.7 Absolute Neuts (auto) 4.0 Absolute Lymphs (auto) 1.00 Nucleated RBC % 0 Lactic Acid < 1.0 Radiography Chest X-Ray - ED: 1 View, Read by ED Physician and Read by Radiologist Diagnostic Testing: Clinical Impression(s) from Imaging Studies Chest X-Ray 01/31/25 18:12 IMPRESSION: No prior imaging available for comparison at this time. Patient is rotated to the left. Tracheostomy tube is in place with balloon measuring approximately 4.4 cm. Mid to lower trachea measures around 2 cm. The right lung overall appears hyperinflated with extension of the lung across the midline and flattening of the diaphragm. The left lung appears small with coarse irregular chronic appearing opacities. A superimposed acute process is difficult to exclude without comparison. Possible left pleural fluid. Patchy ill-defined opacity at the right base may represent developing infiltrate for possible aspiration. Reading Location: [id number] Discharge Plan Triage Chief Complaint: Shortness of Breath ED Midlevel Provider: Adam Meek ED Provider: Jesus Taylor Dx/Rx/DC Orders Clinical Impression: Chest congestion, Mucus plug in respiratory tract, History of anoxic brain injury, Hx of cerebral palsy Instructions: Chest and Lung Problems Prescriptions: No Action famotidine 20 MG tablet 20 mg G-tube PRN Rx Instructions: PEG metoprolol tartrate 25 MG tablet 25 mg G-tube TID PRN Rx Instructions: Tube PEG TUBE levetiracetam [Keppra] 100 MG/ML solution 250 mg G-tube BID ipratropium-albuterol 3 ML solution for nebulization 3 ml INHALATION Q6H.RT Primary Care Provider: Iris Herrera Referrals: Angus Perez MD [Non-Staff] - Activity Restrictions/Additional Instructions: Please follow-up outpatient. Please return for any worsening symptoms peer Print Language: Peruvian Disposition Disposition: Home, Self Care
--- NOTE | 2025-01-31 18:12 | RAD_ITS ---
PROCEDURE: CHEST 1 VIEW (PORTABLE) 01/31/2025 REASON FOR EXAM: COUGH TECHNIQUE: Frontal view of the chest. COMPARISON: None. FINDINGS: No prior imaging available for comparison at this time. Patient is rotated to the left. Tracheostomy tube is in place with balloon measuring approximately 4.4 cm. Mid to lower trachea measures around 2 cm. Peg is seen at the visualized left upper quadrant. Scoliosis. The right lung overall appears hyperinflated with extension of the lung across the midline and flattening of the diaphragm. The left lung appears small with coarse irregular chronic appearing opacities. A superimposed acute process is difficult to exclude without comparison. Possible left pleural fluid. Patchy ill-defined opacity at the right base may represent developing infiltrate for possible aspiration. Cardiac silhouette is not adequately evaluated. RAD/Chest 1 View (Portable) IMPRESSION: No prior imaging available for comparison at this time. Patient is rotated to the left. Tracheostomy tube is in place with balloon luis eduardo suring approximately 4.4 cm. Mid to lower trachea measures around 2 cm. The right lung overall appears hyperinflated with extension of the lung across the midline and flattening of the diaphragm. The left lung appears small with coarse irregular chronic appearing opacities. A superimposed acute process is difficult to exclude without comparison. Possible left pleural fluid. Patchy ill-defined opacity at the right base may represent developing infiltrat e for possible aspiration. Reading Location: [id number]
[2025-01-31] MEDS: 0.9% Normal Saline (1000mL) 1,000 ML 1000 ML IV (18:30)
[2025-01-31 18:59] LABS: Basophil# 0.04 X10^3/uL; Basophil% 0.7 % (0-1); Eosinophil# 0.03 X10^3/uL; Eosinophils% 0.5 % (0-5); Hematocrit 40.3 % (40-54); Hemoglobin 12.5 g/dL (13.0-16.5); Lymphocyte % 16.9 % (19-41); Mean Corpuscular Hgb 26.2 pg (27.0-32.0); Mean Corpuscular Volume 84.3 fL (80-94); Monocyte# 0.85 X10^3/uL; Monocyte% 14.3 % (0-10); NRBC Flagged by Analyzer 0 % (0-5); Neutrophil # 3.99 X10^3/uL (2.7-7.7); Neutrophil % 67.3 % (47-70); Platelet Count 351 K/mm3 (150-450); RBC Distribution Width CV 19.1 % (11.6-14.6); RBC Distribution Width SD 58.7 fl (35.1-43.9); Red Blood Count 4.78 M/mm3 (4.6-6.2); White Blood Count 5.9 K/mm3 (4.4-11.0)
[2025-01-31 19:22] LABS: Lactic Acid < 1.0 mmol/L (0.0-2.0)
[2025-01-31 19:42] LABS: Bacteria 0 SEEN /hpf (None Seen); Mucous, Urine 0 SEEN /hpf (<or=2+); White Blood Cells 0 SEEN /hpf (0-5)
[2025-01-31 19:45] LABS: Anion Gap 9 (5-15); BUN 13 mg/dL (4-19); BUN/Creat Ratio UNABLE TO CALCULATE RATIO (10-20); Calcium,Total 9.2 mg/dL (7.6-11.0); Carbon Dioxide 35.4 mmol/L (21.0-32.0); Chloride 90 mmol/L (98-108); Creatinine, Serum < 0.20 mg/dL (0.70-1.20); EST Glomerular Filtration Rate UNABLE TO CALCULATE (>60); Glucose 89 mg/dL (70-99); Potassium 3.9 mmol/L (3.3-5.1); Sodium Level 135 mmol/L (133-145)
[2025-01-31 19:45] LABS: Color, Urine Yellow (Yellow); Glucose, Dipstick Normal (Normal); Ketone-Dipstick Negative (Negative); Leukocyte Esterase-Dipstick Negative /ul (Negative); Nitrite-Dipstick Negative (Negative); Occult Blood-Urine 150 /ul (Negative); Protein-Dipstick 15 mg/dl (Negative); Urine Bilirubin Dipstick Negative (Negative); Urine Clarity Sl. Cloudy (Clear); Urine Urobilinogen 1 mg/dl (Normal)
[2025-01-31 19:51] LABS: Amorphous Sediment 1+ URATE; Red Blood Cells-Urine 10-25 SEEN /hpf (0-5); Squamous Epithelial Cells - UA 0-5 SEEN /hpf (0-5)
== END 2025-01-31 20:28 | disposition home or self-care (01) ==
PROVIDERS: Emergency Provider Emergency Medicine; PCP Student in an Organized Health Care Education/Training Program; Referring Provider Emergency Medicine; Visit Provider Emergency Medicine
DX: R06.02 Shortness of breath (principal); Z93.0 Tracheostomy status; Z93.3 Colostomy status; R09.89 Other specified symptoms and signs involving the circulatory and respiratory systems; Z87.820 Personal history of traumatic brain injury; Z86.69 Personal history of other diseases of the nervous system and sense organs
CPT/HCPCS: 31720; 71045; 80048; 81001; 83605; 85025; 87040; 87070; 87077; 87186; 87205; 87631; 96360; 96361; 99282; A4216

== ENCOUNTER 2025-02-08 12:53 | Emergency (ER) | payer MEDICARE, MEDICAID, SELFPAY ==
[2025-02-08] VITALS (14 sets, daily range): BP systolic 90–120; BP diastolic 63–86; PULSE 82–137; RESP 12–20; TEMP 35.8–36.9; O2SAT 93–100
--- NOTE | 2025-02-08 13:05 | ED.RN ---
unable to get weight
--- NOTE | 2025-02-08 14:00 | EX.ED.DYSGE1 ---
HPI History of Present Illness Chief Complaint: Shortness of Breath Detail of Chief Complaint: Difficulty breathing since last evening at approximately 1999 Informant: parent Onset/Context/Timing Onset: Yesterday (Onset approximately 0) Context: Sudden Onset Timing: Continuous Quality: Parents were unable to suction and difficulty ventilating Location: Respiratory Current Severity: Gone Maximum Severity: Severe Worsened by: Unknown, will speak with respiratory since this occurred prior to beginning Relieved by: Respiratory alleviated the obstruction and or displaced tube . Associated Symptoms Associated Symptoms: No other symptoms. Narrative Narrative: Patient is a 29-year-old male. He is vent dependent. He is nonverbal. Parents states he was seen last week. He was prescribed Augmentin and azithromycin by his PCP. The father states that the ER contact him to prescribe a different antibiotic to begin with the elbow. Asked if it was levofloxacin. He stated yes. He also informed me that he did not have the prescription filled. They kept him on the Augmentin and azithromycin. Father states his sputum cleared up and he improved rapidly. Patient has history of anoxic brain injury, muscular dystrophy, seizure disorder who is vent dependent for the past 5 years. The note authored by Dr. Taylor was reviewed. Prior similar symptoms: Yes Recent Illness/Hospitalization: Yes (Seen January 31, [address] Taylor[address] [facility] Medical History (Updated 02/08/25 @ 20:[address] Wally Cantor MD) Pressure ulcer Gilman catheter in place Colostomy in place Muscular dystrophy Seizures Gastric reflux Non-smoker On home oxygen therapy Ventilator dependent History of irregular heartbeat History of non-healing wound History of wound infection Anoxic encephalopathy Home Medications ?Medication ?Instructions ?Recorded ?Last Taken ?Type famotidine 20 mg tablet 20 mg G-tube PRN GERD 11/03/20 02/07/25 History metoprolol tartrate 25 mg tablet 25 mg G-tube Q12H PRN heart rate 11/03/20 02/07/25 History levetiracetam 100 mg/mL oral 250 mg G-tube BID seizures 11/16/20 02/08/25 09:00 History solution (Keppra) ipratropium 0.5 mg-albuterol 3 mg 3 ml inhalation Q6H.RT breathing 01/23/21 01/30/21 History (2.5 mg base)/3 mL nebulization soln levofloxacin 250 mg/10 mL oral 500 mg (20 mL) PO DAILY 7 days 02/04/25 Unknown Rx solution #140 mL amoxicillin 875 mg-potassium 1 tab PO BID 02/08/25 02/08/25 09:00 History clavulanate 125 mg tablet azithromycin 250 mg tablet 500 mg PO DAILY 02/08/25 02/08/25 History Allergy/AdvReac Type Severity Reaction Status Date / Time No Known Allergies Allergy Verified 02/19/22 10:29 Surgical History S/P bronchoscopy Hx of surgical procedure Hx of tracheostomy Social History Smoking Status: Never smoker EXAM Physical Exam Const Vital Signs: 02/08/25 12:54 02/08/25 13:00 02/08/25 13:00 Temperature 96.7 F L Temperature Source Temporal Pulse Rate 82 98 Respiratory Rate 16 Respiratory Effort Respiratory Depth Respiratory Pattern Blood Pressure 98/72 Blood Pressure Mean 80 Pulse Ox 100 98 Oxygen Delivery Method Ambu-Bag Mechanical Ventilator Mechanical Ventilator Oxygen Flow Rate (L/min) 4 02/08/25 13:03 02/08/25 14:00 02/08/25 14:00 Temperature 96.4 F L Temperature Source Temporal Pulse Rate 129 H 111 H Respiratory Rate 20 H 18 Respiratory Effort Normal Non-Labored Respiratory Depth Normal Respiratory Pattern Normal Blood Pressure 98/72 101/79 Blood Pressure Mean 80 86 Pulse Ox 100 96 Oxygen Delivery Method Ambu-Bag Mechanical Ventilator Mechanical Ventilator Oxygen Flow Rate (L/min) 02/08/25 14:00 02/08/25 15:00 02/08/25 16:00 Temperature 96.5 F L 96.5 F L 96.5 F L Temperature Source Temporal Temporal Temporal Pulse Rate 111 H 119 H 121 H Respiratory Rate 16 18 16 Respiratory Effort Respiratory Depth Respiratory Pattern Blood Pressure 105/79 93/81 H 101/86 H Blood Pressure Mean 87 85 91 Pulse Ox 96 100 96 Oxygen Delivery Method Mechanical Ventilator Mechanical Ventilator Mechanical Ventilator Oxygen Flow Rate (L/min) 02/08/25 17:00 02/08/25 18:00 02/08/25 19:00 Temperature 96.5 F L 96.5 F L 98.3 F Temperature Source Temporal Temporal Axillary Pulse Rate 126 H 132 H 137 H Respiratory Rate 18 18 14 Respiratory Effort Respiratory Depth Respiratory Pattern Blood Pressure 90/79 109/63 120/84 H Blood Pressure Mean 82 78 96 Pulse Ox 97 93 95 Oxygen Delivery Method Mechanical Ventilator Mechanical Ventilator Mechanical Ventilator Oxygen Flow Rate (L/min) Positive well developed General Appearance ED: well developed and NAD; Negative for cyanotic or diaphoretic HEENT Reports moist mucous membranes HEENT Narrative: Head is atraumatic normocephalic. Ears normal. Nares patent. Eyes Eyes Narrative: Patient has roving eyes. Pupils possibly react to light. Neck Neck Narrative: Patient has a tracheostomy in place. He is being ventilated through this. There is no secretions. Per Tosha the respiratory therapist the trachea was positional and was obstructed. Once it was repositioned they were able to ventilate and his oxygen level improved. Chest Wall inspection of chest normal and palpation of chest normal Resp normal respiratory effort and No clear to auscultation bilaterally Resp Narrative: Wheezing noted on the right side only. Cardio regular rate, regular rhythm, S1 normal heart sound, S2 normal heart sound and no murmurs GI GI Narrative: Abdomen is scaphoid. No palp pulsatile mass abdominal bruit. Back/Spine Back/Spine Narrative: Patient has a [place] catheter in place. Extremity Negative for normal to inspection Extremity Narrative: Atrophy of extremities due to nonuse. Neuro No oriented x3 Neuro Narrative: GCS is 3T Sensorium / Orientation: Negative for alert Psych Psych Narrative: Unable to determine Skin Skin Narrative: Patient appears pale. He has a blanching macular rash noted on his torso. MDM MDM Lab Data Attestation: I reviewed the patient's lab results. Lab results narrative: White count is elevated with a slight shift. White count was normal on January 31. BMP is remarked for an elevated CO2 of 39.9. Will obtain an ABG Labs: Laboratory Results - last 24 hr 02/08/25 15:21 WBC 15.4 H RBC 5.10 Hgb 13.4 Hct 45.5 MCV 89.2 MCH 26.3 L MCHC 29.5 L RDW Std Deviation 60.7 H RDW Coeff of Taylor 19.2 H Plt Count 370 MPV 8.9 Immature Gran % (Auto) 2.900 H Neut % (Auto) 78.8 H Lymph % (Auto) 5.2 L [place] % (Auto) 12.1 H Eos % (Auto) 0.4 Baso % (Auto) 0.6 Absolute Neuts (auto) 12.2 H Absolute Lymphs (auto) 0.80 L Nucleated RBC % 0 Diff Path Review May foll Platelet Estimate A Polychromasia 1+ Sodium 135 Potassium 3.6 Chloride 89 L Carbon Dioxide 39.9 H Anion Gap 6 BUN 17 Creatinine < 0.20 L Est GFR (MDRD) Non-Af UNABLE TO CALCULATE L BUN/Creatinine Ratio UNABLE TO CALCULATE L Glucose 122 H Calcium 9.2 ABG Data Attestation: I personally reviewed and interpreted this ABG as follows: Interpretation: ABG reveals a alkalosis with pH of 7.33, bicarb of 41.3, base excess 16, saturation 97%, pCO2 is elevated at 77.6 and pO2 is 100. Patient has a metabolic alkalosis with acute respiratory acidosis. His alkalosis is probably due to his hypochloremia. ABG results: ABG 02/08/25 17:35 Specimen Type ART Sample Site R Radial pH 7.33 L Bicarbonate Actual 41.3 H Total CO2 44 Base Excess 16 H O2 Saturation 97 O2 % 4.0 ABG pCO2 77.6 H* ABG pO2 100 Aaron Test Positive O2 Delivery Device Home Vent Vent Mode Not entered Crit Call To/Read Back Yes Radiography Chest X-Ray - ED: 1 View, Read by ED Physician (Since suboptimal film. Tracheostomy noted. Significant rotated. Decreased aeration on the left suspect due to body positioning and the fact that he has kyphosis. There may be a small effusion on the right. This was compared to x-ray obtained January 31. There is no significant interval change. ) and Chronic Changes Diagnostic Testing: Clinical Impression(s) from Imaging Studies Chest X-Ray 02/08/25 15:38 IMPRESSION: 1. Right basilar atelectasis or pneumonia. 2. Pulmonary venous congestion. 3. Right pleural effusion. Reading Location: [facility] Management Discussion w/another healthcare provider: Decorating Consultant (Spoke with Dr. Rico Thorne on-call for Ashley PERERA. The 2 physicians in the group that operate at the hospital are both out of town. Dr. Teresita Fuentes has not been in the hospital over 3 years.) and Other (Spoke to grain thresher and critical care team at [facility]. Patient been accepted.) Treatment and Re-Evaluation :: ENT recommended transfer since he will need scope determine if the 8 cuffed Shiley is being obstructed because of pliability and movement of the structures versus stenosis due to leukomalacia. Parents were informed that they will need to be transferred. Procedures Other Procedures Procedure(s): Blood draw by physician. Nurses unable to establish IV or obtain blood. They also made me aware of a rash. The [place] had petechiae. This is not petechiae. It blanches. It is a macular erythematous rash that blanches. This may be a drug reaction versus viral rash versus other cause. Patient's right groin was cleaned. 30 cc of blood was aspirated successfully on first attempt by me. The right femoral vein was cannulated successfully first attempt on the way in. Critical Care Time Critical Care Time: Yes Critical care time (excluding procedures): 30-74 minutes (31), Including time spent: (History, physical, documentation, and for interpretation laboratory results and images, management of airway obstruction), Discussing w/Patient &/or Family/Car Servicer (Obtaining history, update them, informed them the need for transfer, informed them why he needs to be transferred), Discussing w/Consultants (Spoke to ENT who recommended transfer since there is no one available to come to the OR or hospital.) and Arranging Admission or Transfer Discharge Plan Triage Chief Complaint: Shortness of Breath ED Provider: Wally Cantor Dx/Rx/DC Orders Clinical Impression: Anatomic airway obstruction, Dependence on home ventilator, Sinus tachycardia seen on alarm security or surveillance monitor Prescriptions: No Action famotidine 20 MG tablet 20 mg G-tube PRN Rx Instructions: PEG metoprolol tartrate 25 MG tablet 25 mg G-tube Q12H PRN (Reason: heart rate) Rx Instructions: Tube PEG TUBE levetiracetam [Keppra] 100 MG/ML solution 250 mg G-tube BID ipratropium-albuterol 3 ML solution for nebulization 3 ml INHALATION Q6H.RT levofloxacin 250 mg/10 mL solution 500 mg PO DAILY 7 Days Qty: 140 0RF azithromycin 250 mg tablet 500 mg PO DAILY amoxicillin-pot clavulanate 875-125 mg tablet 1 tab PO BID Primary Care Provider: Iris Herrera Referrals: Iris Herrera MD [Primary Care Provider] - Print Language: Palestinian Disposition Disposition: Acute Care Hospital Discharge Location: [facility]
[2025-02-08 15:33] LABS: Absolute Neutrophil Count 12.2 X10^3/uL (2.0-7.7); Basophil# 0.09 X10^3/uL; Basophil% 0.6 % (0-1); Eosinophil# 0.06 X10^3/uL; Eosinophils% 0.4 % (0-5); Hematocrit 45.5 % (40-54); Hemoglobin 13.4 g/dL (13.0-16.5); Lymphocyte % 5.2 % (19-41); Mean Corp Hgb Conc 29.5 g/dL (32-36); Mean Corpuscular Hgb 26.3 pg (27.0-32.0); Mean Corpuscular Volume 89.2 fL (80-94); Mean Platelet Vol. 8.9 fl (6.2-12.0); Monocyte# 1.86 X10^3/uL; Monocyte% 12.1 % (0-10); NRBC Flagged by Analyzer 0 % (0-5); Neutrophil # 12.16 X10^3/uL (2.7-7.7); Neutrophil % 78.8 % (47-70); POSITIVE COUNT YES; POSITIVE DIFFERENTIAL YES; Platelet Count 370 K/mm3 (150-450); RBC Distribution Width CV 19.2 % (11.6-14.6); RBC Distribution Width SD 60.7 fl (35.1-43.9); White Blood Count 15.4 K/mm3 (4.4-11.0)
--- NOTE | 2025-02-08 15:38 | RAD_ITS ---
EXAM: XR Chest, 1 View CLINICAL INDICATION: INSPIRATORY RHONCHI RIGHT SIDE ONLY TECHNIQUE: Frontal view of the chest. COMPARISON: No relevant prior studies available. FINDINGS: LUNGS AND PLEURAL SPACES: Right basilar atelectasis or pneumonia. Pulmonary venous congestion. Right pleural effusion. No pneumothorax. HEART: Unremarkable. No cardiomegaly. MEDIASTINUM: Unremarkable. Normal mediastinal contour. BONES/JOINTS: Unremarkable. No acute fracture. RAD/Chest 1 View (Portable) IMPRESSION: 1. Right basilar atelectasis or pneumonia. 2. Pulmonary venous congestion. 3. Right pleural effusion. Reading Location: [facility]
[2025-02-08 16:02] LABS: Anion Gap 6 (5-15); BUN 17 mg/dL (4-19); BUN/Creat Ratio UNABLE TO CALCULATE RATIO (10-20); Calcium,Total 9.2 mg/dL (7.6-11.0); Carbon Dioxide 39.9 mmol/L (21.0-32.0); Chloride 89 mmol/L (98-108); Creatinine, Serum < 0.20 mg/dL (0.70-1.20); EST Glomerular Filtration Rate UNABLE TO CALCULATE (>60); Glucose 122 mg/dL (70-99); Potassium 3.6 mmol/L (3.3-5.1); Sodium Level 135 mmol/L (133-145)
[2025-02-08 16:10] LABS: Differential Indicated SCAN CRITERIA MET
[2025-02-08 16:11] LABS: Platelet Estimate A (ADEQ); Polychromasia 1+
[2025-02-08 16:12] LABS: Pathologist Review May foll
--- NOTE | 2025-02-08 17:37 | CPS ---
Critical ABG results to Dr che.
[2025-02-08 17:39] LABS: Allen Test Positive; Base Excess 16 mmol/L (-2 to +2); Bicarbonate 41.3 mmol/L (22-26); Blood Gas Specimen Type ART; Mode Not entered; PO2 100 mmHG (75-100); SITE R Radial; SO2 97 % (95-99); Total Carbon Dioxide 44 mmol/L; pCO2 77.6 mmHg (35-45); pH 7.33 (7.35-7.45)
[2025-02-08] MEDS: Metoprolol Tartrate 5 MG/5 ML Vial IV (19:46)
[2025-02-08] MEDS: levETIRAcetam IV 250 MG in 0.9% Normal Saline (100mL Bag) 100 ML 420 MG IV (20:26)
[2025-02-08] MEDS: Famotidine 200 MG/20 ML MDV 20 MG in 0.9% Normal Saline (Pres. free 8 ML 300 MG IV (20:26)
--- NOTE | 2025-02-09 00:44 | CPS ---
Patient began triggering high peak pressure alarms on home vent. RT initially called to bedside to suction patient per the parents request. RT was able to evaluate the patency of the airway and had to take the patient off his home vent to be bagged via ambu bag. RN and physician called to bedside for further intervention.
== END 2025-02-08 23:55 | disposition short-term general hospital (02) ==
PROVIDERS: Emergency Provider Emergency Medicine; PCP Student in an Organized Health Care Education/Training Program; Visit Provider Emergency Medicine
DX: J98.8 Other specified respiratory disorders (principal); Z93.0 Tracheostomy status; Z99.11 Dependence on respirator [ventilator] status; G71.00 Muscular dystrophy, unspecified; G40.909 Epilepsy, unspecified, not intractable, without status epilepticus; J39.8 Other specified diseases of upper respiratory tract; R00.0 Tachycardia, unspecified; Z79.899 Other long term (current) drug therapy
CPT/HCPCS: 36600; 71045; 80048; 82803; 85025; 96365; 96375; 99252; 99284; A4216; G0463